=== PATIENT | female | born 1970 | race Hispanic/Latino ===

== ENCOUNTER 2017-10-23 23:31 | Emergency (ER) | payer BC ==
[~2017-10-23] VITALS: Ht 152.4 cm; Wt 78.0 kg
[~2017-10-23 23:31] MED LIST: ADIPEX-P37.5 MG; ARTHRITIS MEDICATION PO; DICYCLOMINE HCL20 MG PO; LISINOPRIL10 MG PO; LYRICA75 MG PO; NEXIUM40 MG PO; PHENOBARBITAL30 MG; TENORMIN100 MG PO; ULTRAM50 MG PO
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
[2017-10-24] MEDS ORDERED: KETOROLAC TROMETHAMINE 60 MG/2 ML VIAL IM ONE (01:30)
== END 2017-10-24 01:48 | disposition home or self-care (01) ==
LOC: ER 23:31
DX: S00.83XA Contusion of other part of head, initial encounter (principal); S40.012A Contusion of left shoulder, initial encounter; S40.022A Contusion of left upper arm, initial encounter; S70.02XA Contusion of left hip, initial encounter; S70.01XA Contusion of right hip, initial encounter; S16.1XXA Strain of muscle, fascia and tendon at neck level, initial encounter; V43.52XA Car driver injured in collision with other type car in traffic accident, initial encounter; Y92.488 Other paved roadways as the place of occurrence of the external cause
CPT/HCPCS: 70450; 71045; 72125; 73030; 73060; 73522; 99284; J1885

== ENCOUNTER → 2020-10-30 | Day surgery (SDC) | payer BC ==
[~2020-10-30] MED LIST changes: +CYCLOBENZAPRINE10 MG PO; +DEXAMETHASONE SOD PHOS 10 MG/1 ML VIAL ONE; +FENTANYL CITRATE/PF 100MCG/2 ML INJ ONE; +LIDOCAINE HCL 1% 30ML-PF VIAL ONE; +MIDAZOLAM HCL 2 MG/2 ML VIAL ONE; +MORPHINE PO; +ONDANSETRON HCL INJ 2MG/ML 2ML 2 MG/ML VIAL ONE; +POVIDONE IODINE 0.05% 0.05 % ML PO ONE; +PROPOFOL IV EMULSION 10 MG/ML 20 ML VIAL ONE; +VITAMIN D PO
[2020-10-30 08:30] VITALS: BP 110/62
== END | disposition home or self-care (01) ==
LOC: OR 11:15
PROVIDERS: ATTEND Physical Medicine & Rehabilitation Pain Medicine
DX: M54.12 Radiculopathy, cervical region (principal); M25.511 Pain in right shoulder; M46.1 Sacroiliitis, not elsewhere classified; M54.16 Radiculopathy, lumbar region; M47.816 Spondylosis without myelopathy or radiculopathy, lumbar region; G47.33 Obstructive sleep apnea (adult) (pediatric); I10 Essential (primary) hypertension; K58.9 Irritable bowel syndrome, unspecified; K21.9 Gastro-esophageal reflux disease without esophagitis; N20.0 Calculus of kidney; Z91.041 Radiographic dye allergy status; Z01.810 Encounter for preprocedural cardiovascular examination
CPT/HCPCS: 64479; 64480; 93005; J1100; J2001; J2250; J2405; J2704; J3010; 77003

== ENCOUNTER → 2020-11-06 | Day surgery (SDC) | payer BC ==
[~2020-11-06] MED LIST changes: -DEXAMETHASONE SOD PHOS 10 MG/1 ML VIAL ONE; +DIPHENHYDRAMINE HCL INJ 50 MG/ML VIAL ONE; +IOPAMIDOL 200 MG/ML 20 ML VIAL IT ONE; -ONDANSETRON HCL INJ 2MG/ML 2ML 2 MG/ML VIAL ONE; -POVIDONE IODINE 0.05% 0.05 % ML PO ONE; -PROPOFOL IV EMULSION 10 MG/ML 20 ML VIAL ONE
[2020-11-06 08:50] VITALS: BP 117/66
== END | disposition home or self-care (01) ==
LOC: OR 07:01
PROVIDERS: ATTEND Physical Medicine & Rehabilitation Pain Medicine
DX: M16.12 Unilateral primary osteoarthritis, left hip (principal); M47.816 Spondylosis without myelopathy or radiculopathy, lumbar region; M54.12 Radiculopathy, cervical region; M54.16 Radiculopathy, lumbar region; M46.1 Sacroiliitis, not elsewhere classified; M25.511 Pain in right shoulder; G47.33 Obstructive sleep apnea (adult) (pediatric); I10 Essential (primary) hypertension; Z91.041 Radiographic dye allergy status; K21.9 Gastro-esophageal reflux disease without esophagitis
CPT/HCPCS: 20610; 77002; J1200; J2001; J2250; J3010; Q9967

== ENCOUNTER → 2020-12-18 | Day surgery (SDC) | payer BC ==
[~2020-12-18] MED LIST changes: +DEXAMETHASONE SOD PHOS 10 MG/1 ML VIAL ONE; +DEXAMETHASONE SOD PHOS INJ 4 MG/ML VIAL ONE; -DIPHENHYDRAMINE HCL INJ 50 MG/ML VIAL ONE; -FENTANYL CITRATE/PF 100MCG/2 ML INJ ONE; +HYDROCODON-ACE1 EAC9 PO; -IOPAMIDOL 200 MG/ML 20 ML VIAL IT ONE; +LISINOPRIL5 MG PO; -MIDAZOLAM HCL 2 MG/2 ML VIAL ONE; +ONDANSETRON HCL INJ 2MG/ML 2ML 2 MG/ML VIAL ONE; +POVIDONE IODINE 0.05% 0.05 % ML PO ONE; +PROPOFOL IV EMULSION 10 MG/ML 20 ML VIAL ONE
[2020-12-18 08:48] VITALS: BP 111/70
== END | disposition home or self-care (01) ==
LOC: OR 05:52
PROVIDERS: ATTEND Physical Medicine & Rehabilitation Pain Medicine
DX: M54.16 Radiculopathy, lumbar region (principal); K21.9 Gastro-esophageal reflux disease without esophagitis; K58.9 Irritable bowel syndrome, unspecified; G47.33 Obstructive sleep apnea (adult) (pediatric); I10 Essential (primary) hypertension; M54.12 Radiculopathy, cervical region; M25.511 Pain in right shoulder; Z91.041 Radiographic dye allergy status
CPT/HCPCS: 64483; 64484; J1100 ×2; J2001; J2405; J2704; 77003

== ENCOUNTER → 2021-03-05 | Day surgery (SDC) | payer BC ==
[~2021-03-05] MED LIST changes: -DEXAMETHASONE SOD PHOS INJ 4 MG/ML VIAL ONE; +FENTANYL CITRATE/PF 100MCG/2 ML INJ ONE; +LOSARTAN POTASS25 MG PO; +MIDAZOLAM HCL 2 MG/2 ML VIAL ONE; -ONDANSETRON HCL INJ 2MG/ML 2ML 2 MG/ML VIAL ONE
[2021-03-05 08:30] VITALS: BP 110/77
== END | disposition home or self-care (01) ==
LOC: OR 07:09
PROVIDERS: ATTEND Physical Medicine & Rehabilitation Pain Medicine
DX: M54.16 Radiculopathy, lumbar region (principal); M46.1 Sacroiliitis, not elsewhere classified; M24.9 Joint derangement, unspecified; M54.12 Radiculopathy, cervical region; I10 Essential (primary) hypertension; Z91.041 Radiographic dye allergy status; Z01.810 Encounter for preprocedural cardiovascular examination; Z01.812 Encounter for preprocedural laboratory examination; Z20.822 Contact with and (suspected) exposure to COVID-19
CPT/HCPCS: 64483; 77003; 93005; J1100; J2001; J2250; J2704; J3010; U0002 ×2

== ENCOUNTER → 2021-03-19 | Day surgery (SDC) | payer BC ==
[~2021-03-19] MED LIST changes: +BUPIVACAINE 0.25% 30ML SDV ONE; -DEXAMETHASONE SOD PHOS 10 MG/1 ML VIAL ONE; +LIDOCAINE HCL 2% LOCAL INJ 5 ML SDV VIAL INJ ONE; +TRIAMCINOLONE ACET 40 MG/ML VIAL ONE
[2021-03-19 07:12] VITALS: BP 113/71
== END | disposition home or self-care (01) ==
LOC: OR 06:50
PROVIDERS: ATTEND Physical Medicine & Rehabilitation Pain Medicine
DX: M46.1 Sacroiliitis, not elsewhere classified (principal); G57.02 Lesion of sciatic nerve, left lower limb; M62.838 Other muscle spasm; M25.552 Pain in left hip; M25.551 Pain in right hip; M24.9 Joint derangement, unspecified; M25.511 Pain in right shoulder; M47.816 Spondylosis without myelopathy or radiculopathy, lumbar region; G47.33 Obstructive sleep apnea (adult) (pediatric); I10 Essential (primary) hypertension; K21.9 Gastro-esophageal reflux disease without esophagitis; K58.9 Irritable bowel syndrome, unspecified; N20.0 Calculus of kidney; Z91.041 Radiographic dye allergy status; Z01.812 Encounter for preprocedural laboratory examination; Z20.822 Contact with and (suspected) exposure to COVID-19
CPT/HCPCS: 20552; G0260; 77002; J2001; J2250; J3010; J3301; U0002

== ENCOUNTER → 2021-04-30 | Day surgery (SDC) | payer BC ==
[~2021-04-30] MED LIST changes: -BUPIVACAINE 0.25% 30ML SDV ONE; -FENTANYL CITRATE/PF 100MCG/2 ML INJ ONE; +ONDANSETRON HCL INJ 2MG/ML 2ML 2 MG/ML VIAL ONE
[2021-04-30 09:45] VITALS: BP 109/58
== END | disposition home or self-care (01) ==
LOC: OR 14:58
PROVIDERS: ATTEND Physical Medicine & Rehabilitation Pain Medicine
DX: M47.896 Other spondylosis, lumbar region (principal); M46.1 Sacroiliitis, not elsewhere classified; M54.12 Radiculopathy, cervical region; M54.16 Radiculopathy, lumbar region; M24.9 Joint derangement, unspecified; M25.511 Pain in right shoulder; I10 Essential (primary) hypertension; Z91.041 Radiographic dye allergy status; Z01.812 Encounter for preprocedural laboratory examination; Z20.822 Contact with and (suspected) exposure to COVID-19; Z79.899 Other long term (current) drug therapy
CPT/HCPCS: 64493; 64494; 64495; J2001 ×2; J2250; J2405; J2704; J3301; U0002; 77003

== ENCOUNTER 2021-11-11 21:28 | Emergency (ER) | payer OTHER ==
[~2021-11-11] VITALS: Ht 152.4 cm; Wt 78.0 kg
[~2021-11-11 21:28] MED LIST changes: -LIDOCAINE HCL 1% 30ML-PF VIAL ONE; -LIDOCAINE HCL 2% LOCAL INJ 5 ML SDV VIAL INJ ONE; -MIDAZOLAM HCL 2 MG/2 ML VIAL ONE; -ONDANSETRON HCL INJ 2MG/ML 2ML 2 MG/ML VIAL ONE; -POVIDONE IODINE 0.05% 0.05 % ML PO ONE; -PROPOFOL IV EMULSION 10 MG/ML 20 ML VIAL ONE; -TRIAMCINOLONE ACET 40 MG/ML VIAL ONE
[2021-11-11 22:42] LABS: BASOPHILS % 0.3 % (0.0-1.0); EOSINOPHILS # (AUTO) 0.1 (0.0-0.4); HEMATOCRIT 33.5 % (34.2-44.1); HEMOGLOBIN 9.8 g/dL (12.0-16.0); LYMPHOCYTES # (AUTO) 1.4 (1.0-3.2); LYMPHOCYTES % 16.5 % (18.0-39.1); MEAN CORPUSCULAR HEMOGLOBIN 27.1 pg (28-32); MEAN CORPUSCULAR HGB CONC 29.3 g/dL (31-35); MEAN CORPUSCULAR VOLUME 92.8 fL (81-99); MONOCYTES # (AUTO) 0.9 (0.2-0.8); NEUTROPHILS # (AUTO) 6.3 (2.1-6.9); PLATELET COUNT 285 x10e3/uL (140-360); RED BLOOD COUNT 3.61 x10e6/uL (3.6-5.1)
[2021-11-11 22:44] LABS: CLARITY,URINE SL CLOUDY (CLEAR); COLOR,URINE YELLOW (YELLOW); KETONES,URINE NEGATIVE (NEGATIVE); LEUKOCYTE ESTERASE ,URINE NEGATIVE (NEGATIVE); NITRITE,URINE POSITIVE (NEGATIVE); PROTEIN,URINE DIPSTICK NEGATIVE (NEGATIVE); URINE UROBILINOGEN 0.2 mg/dL (0.2 - 1)
[2021-11-11 22:47] LABS: BACTERIA,URINE MANY /HPF; EPITHELIAL CELLS,URINE MODERATE /LPF; RBC,URINE 0-5 /HPF (0-5); WBC,URINE (MAN) 0-5 /HPF (0-5)
[2021-11-11 23:01] LABS: ALBUMIN 3.1 g/dL (3.5-5.0); ANION GAP 13.7 mmol/L (8-16); CALCIUM 8.2 mg/dL (8.4-10.2); CREATININE, SERUM 0.78 mg/dL (0.57-1.11); POTASSIUM 4.7 mmol/L (3.5-5.1)
== END 2021-11-12 00:23 | disposition home or self-care (01) ==
LOC: ER 22:25
DX: M54.50 Low back pain, unspecified (principal); G89.29 Other chronic pain; R10.32 Left lower quadrant pain; R11.0 Nausea; I10 Essential (primary) hypertension; E03.9 Hypothyroidism, unspecified; K21.9 Gastro-esophageal reflux disease without esophagitis
CPT/HCPCS: 36415; 70450; 72125; 74176; 80053; 81001; 85025; 87086; 87186; 99284

== ENCOUNTER 2022-05-07 21:45 | Inpatient (IN) | payer OTHER ==
[~2022-05-07] VITALS: Ht 152.4 cm; Wt 43.1 kg
[2022-05-07 23:21] LABS: BASOPHILS % 0.2 % (0.0-1.0); EOSINOPHILS % 0.2 % (0.0-6.0); HEMATOCRIT 30.5 % (34.2-44.1); HEMOGLOBIN 9.1 g/dL (12.0-16.0); LYMPHOCYTES # (AUTO) 1.2 (1.0-3.2); LYMPHOCYTES % 25.6 % (18.0-39.1); MEAN CORPUSCULAR HEMOGLOBIN 31.6 pg (28-32); MEAN CORPUSCULAR HGB CONC 29.8 g/dL (31-35); MEAN CORPUSCULAR VOLUME 105.9 fL (81-99); MONOCYTES # (AUTO) 0.3 (0.2-0.8); MONOCYTES % 5.9 % (4.4-11.3); NEUTROPHILS # (AUTO) 3.2 (2.1-6.9); NEUTROPHILS % 67.5 % (38.7-80.0); PLATELET COUNT 276 x10e3/uL (140-360); RED BLOOD COUNT 2.88 x10e6/uL (3.6-5.1)
[2022-05-07 23:31] LABS: INR 2.27; PROTHROMBIN TIME 25.2 seconds (11.9-14.5)
[2022-05-07 23:39] LABS: CREATINE KINASE 86 IU/L (29-168)
[2022-05-07 23:40] LABS: ALBUMIN 1.4 g/dL (3.5-5.0); ALBUMIN/GLOBULIN RATIO 0.5 (0.8-2.0); CREATININE, SERUM 0.84 mg/dL (0.57-1.11)
[2022-05-08] VITALS (20 sets, daily range): BP systolic 100–125; BP diastolic 61–102
[2022-05-08] MEDS ORDERED: Morphine 4mg INJECTION 4 MG/ML INJ IV PRN (00:45)
[2022-05-08] MEDS ORDERED: Morphine 4mg INJECTION 4 MG/ML INJ IV ONE (00:45)
[2022-05-08] MEDS: SODIUM CHLORIDE 0.9% 1000ML 1,000 ML IV SCH ×2 (01:23→09:45)
[2022-05-08] MEDS ORDERED: ASPIRIN ENTERI325 MG PO (05:25)
[2022-05-08] MEDS ORDERED: MELOXICAM7.5 MG PO (05:54)
[2022-05-08] MEDS ORDERED: LEVOCETIRIZINE D5 MG PO (05:54)
[2022-05-08] MEDS ORDERED: XARELTO20 MG PO (05:54)
[2022-05-08] MEDS ORDERED: MONTELUKAST SOD10 MG PO (05:54)
[2022-05-08] MEDS ORDERED: ONDANSETRON ODT4 MG PO (05:54)
[2022-05-08] MEDS ORDERED: TRIAMTERENE-HCTZ1 EA PO (05:54)
[2022-05-08] MEDS ORDERED: NEXIUM40 MG PO (05:54)
[2022-05-08] MEDS ORDERED: BUTALB-ACETAMI1 EACH PO (05:54)
[2022-05-08] MEDS ORDERED: NEURONTIN300 MG PO (05:54)
[2022-05-08] MEDS ORDERED: LOMOTIL TABLET1 EACH PO (05:54)
[2022-05-08] MEDS ORDERED: METHOCARBAMOL750 MG PO (05:54)
[2022-05-08 06:52] LABS: BASOPHILS % 0.2 % (0.0-1.0); EOSINOPHILS % 0.2 % (0.0-6.0); HEMATOCRIT 27.6 % (34.2-44.1); HEMOGLOBIN 8.3 g/dL (12.0-16.0); LYMPHOCYTES # (AUTO) 1.5 (1.0-3.2); LYMPHOCYTES % 31.1 % (18.0-39.1); MEAN CORPUSCULAR HEMOGLOBIN 31.6 pg (28-32); MEAN CORPUSCULAR HGB CONC 30.1 g/dL (31-35); MEAN CORPUSCULAR VOLUME 104.9 fL (81-99); MONOCYTES # (AUTO) 0.3 (0.2-0.8); NEUTROPHILS % 61.7 % (38.7-80.0); PLATELET COUNT 240 x10e3/uL (140-360); RED BLOOD COUNT 2.63 x10e6/uL (3.6-5.1); RED CELL DISTRIBUTION WIDTH 15.2 % (11.7-14.4)
[2022-05-08 07:20] LABS: CREATINE KINASE MB 1.3 ng/mL (0-5.0)
[2022-05-08] MEDS ORDERED: POTASSIUM CHLORIDE 20 MEQ TAB CR PO PRN (13:30)
[2022-05-08] MEDS ORDERED: DEXTROSE 50% SYRINGE 50 ML IV PRN (13:30)
[2022-05-08] MEDS ORDERED: HYDRALAZINE HCL 20 MG/ML VIAL IV PRN (13:30)
[2022-05-08] MEDS ORDERED: LIDOCAINE 4% PATCH TP PRN (13:30)
[2022-05-08] MEDS ORDERED: MELATONIN 5 MG TABLET PO PRN (13:30)
[2022-05-08] MEDS ORDERED: BENZONATATE 100 MG CAP PO PRN (13:30)
[2022-05-08] MEDS ORDERED: SIMETHICONE 80 MG CHEW PO PRN (13:30)
[2022-05-08] MEDS ORDERED: DIPHENHYDRAMINE HCL 25 MG CAP PO PRN (13:30)
[2022-05-08] MEDS ORDERED: DOCUSATE SODIUM 100 MG CAP PO PRN (13:30)
[2022-05-08] MEDS ORDERED: OXYCODONE/ACETAMINOPHEN 5-325 1 EACH TABLET PO PRN (14:30)
[2022-05-08] MEDS: OXYCODONE/ACETAMINOPHEN 5-325 1 EACH TABLET PO PRN (15:36)
[2022-05-08 15:56] LABS: INR 1.5; PARTIAL THROMBOPLASTIN TIME 17.7 seconds (23.8-35.5); PROTHROMBIN TIME 18.3 seconds (11.9-14.5)
[2022-05-08] MEDS ORDERED: HEPARIN 25,000 UNIT 25,000 UNIT in DEXTROSE 5% 250ML 250 ML IV SCH (18:30)
[2022-05-08 19:01] LABS: HEMATOCRIT 32.8 % (34.2-44.1); HEMOGLOBIN 10.3 g/dL (12.0-16.0)
[2022-05-09] VITALS (31 sets, daily range): BP systolic 96–131; BP diastolic 71–103
[2022-05-09 00:50] LABS: HEMATOCRIT 26.8 % (34.2-44.1); HEMOGLOBIN 8.7 g/dL (12.0-16.0)
[2022-05-09 04:10] LABS: IRON 65 ug/dL (50-170); TRANSFERRIN < 70 mg/dL (180-382)
[2022-05-09 05:47] LABS: BASOPHILS % 0.7 % (0.0-1.0); HEMATOCRIT 27.6 % (34.2-44.1); HEMOGLOBIN 8.5 g/dL (12.0-16.0); LYMPHOCYTES % 22.5 % (18.0-39.1); MEAN CORPUSCULAR HGB CONC 30.8 g/dL (31-35); MEAN CORPUSCULAR VOLUME 103.8 fL (81-99); MONOCYTES # (AUTO) 0.3 (0.2-0.8); MONOCYTES % 5.7 % (4.4-11.3); NEUTROPHILS # (AUTO) 3.2 (2.1-6.9); NEUTROPHILS % 70.7 % (38.7-80.0); PLATELET COUNT 239 x10e3/uL (140-360); RED BLOOD COUNT 2.66 x10e6/uL (3.6-5.1); RED CELL DISTRIBUTION WIDTH 15.4 % (11.7-14.4)
[2022-05-09 06:16] LABS: ALBUMIN 1.3 g/dL (3.5-5.0); ALBUMIN/GLOBULIN RATIO 0.5 (0.8-2.0); ANION GAP 11.4 mmol/L (8-16); CREATININE, SERUM 0.74 mg/dL (0.57-1.11); POTASSIUM 3.4 mmol/L (3.5-5.1)
[2022-05-09 06:17] LABS: CALCIUM 6.5 mg/dL (8.4-10.2)
[2022-05-09] MEDS ORDERED: POTASSIUM CHLORIDE 20 MEQ TAB CR PO STA (06:29)
[2022-05-09] MEDS ORDERED: CALCIUM GLUC 1 G/50 ML NACL 100 ML IV ONE (06:30)
[2022-05-09] MEDS: PANTOPRAZOLE SOD 40 MG TABEC PO SCH (09:16)
[2022-05-09] MEDS: MONTELUKAST SODIUM 10 MG TAB PO SCH (09:16)
[2022-05-09] MEDS: OXYCODONE/ACETAMINOPHEN 5-325 1 EACH TABLET PO PRN (12:15)
[2022-05-09 12:30] LABS: HEMATOCRIT 28.3 % (34.2-44.1); HEMOGLOBIN 9.2 g/dL (12.0-16.0)
[2022-05-09 13:24] LABS: INR 1.21; PROTHROMBIN TIME 15.5 seconds (11.9-14.5)
[2022-05-09] MEDS ORDERED: SODIUM FERRIC GLUCONATE COMPLX 125 MG in SODIUM CHLORIDE 0.9% 100 ML IV ONE (14:00)
[2022-05-09] MEDS: ONDANSETRON HCL INJ 2MG/ML 2ML 2 MG/ML VIAL IV PRN (15:55)
[2022-05-09] MEDS: ACETAMINOPHEN 325 MG TAB PO PRN ×2 (15:58→22:06)
[2022-05-09] MEDS: FUROSEMIDE INJ 10 MG/ML 2 ML VIAL IV SCH ×2 (18:11→22:05)
[2022-05-09 19:44] LABS: HEMATOCRIT 30.5 % (34.2-44.1); HEMOGLOBIN 9.3 g/dL (12.0-16.0)
[2022-05-10] VITALS (26 sets, daily range): BP systolic 93–126; BP diastolic 74–102
[2022-05-10 01:06] LABS: BASOPHILS % 0.5 % (0.0-1.0); EOSINOPHILS % 0.5 % (0.0-6.0); HEMOGLOBIN 8.2 g/dL (12.0-16.0); LYMPHOCYTES # (AUTO) 1.1 (1.0-3.2); LYMPHOCYTES % 18.7 % (18.0-39.1); MEAN CORPUSCULAR HGB CONC 30.4 g/dL (31-35); MEAN CORPUSCULAR VOLUME 105.5 fL (81-99); MONOCYTES # (AUTO) 0.2 (0.2-0.8); NEUTROPHILS # (AUTO) 4.3 (2.1-6.9); NEUTROPHILS % 74.9 % (38.7-80.0); PLATELET COUNT 213 x10e3/uL (140-360); RED BLOOD COUNT 2.56 x10e6/uL (3.6-5.1); RED CELL DISTRIBUTION WIDTH 15.5 % (11.7-14.4)
[2022-05-10] MEDS ORDERED: HEPARIN 25,000 UNIT 25,000 UNIT in DEXTROSE 5% 250ML 250 ML IV SCH ×2 (02:00→02:15)
[2022-05-10] MEDS: OXYCODONE/ACETAMINOPHEN 5-325 1 EACH TABLET PO PRN ×2 (04:01→11:54)
[2022-05-10 06:04] LABS: BASOPHILS % 0.4 % (0.0-1.0); EOSINOPHILS % 0.2 % (0.0-6.0); HEMATOCRIT 25.7 % (34.2-44.1); HEMOGLOBIN 8.2 g/dL (12.0-16.0); LYMPHOCYTES % 19.4 % (18.0-39.1); MEAN CORPUSCULAR HEMOGLOBIN 31.7 pg (28-32); MEAN CORPUSCULAR HGB CONC 31.9 g/dL (31-35); MEAN CORPUSCULAR VOLUME 99.2 fL (81-99); MONOCYTES # (AUTO) 0.3 (0.2-0.8); NEUTROPHILS # (AUTO) 3.9 (2.1-6.9); PLATELET COUNT 220 x10e3/uL (140-360); RED BLOOD COUNT 2.59 x10e6/uL (3.6-5.1); RED CELL DISTRIBUTION WIDTH 15.6 % (11.7-14.4)
[2022-05-10] MEDS: FUROSEMIDE INJ 10 MG/ML 2 ML VIAL IV SCH (06:29)
[2022-05-10 07:19] LABS: ALBUMIN 1.2 g/dL (3.5-5.0); ALBUMIN/GLOBULIN RATIO 0.5 (0.8-2.0); ANION GAP 14.2 mmol/L (8-16); CREATININE, SERUM 0.78 mg/dL (0.57-1.11); POTASSIUM 3.2 mmol/L (3.5-5.1)
[2022-05-10 07:22] LABS: CALCIUM 6.5 mg/dL (8.4-10.2)
[2022-05-10] MEDS: MONTELUKAST SODIUM 10 MG TAB PO SCH (08:14)
[2022-05-10] MEDS: PANTOPRAZOLE SOD 40 MG TABEC PO SCH (08:14)
[2022-05-10] MEDS ORDERED: POTASSIUM CHLORIDE 20 MEQ TAB CR PO ONE (09:30)
[2022-05-10] MEDS: ONDANSETRON HCL INJ 2MG/ML 2ML 2 MG/ML VIAL IV PRN ×2 (09:36→18:39)
[2022-05-10] MEDS ORDERED: HEPARIN 25,000 UNIT 500 UNIT in DEXTROSE 5% 250ML 250 ML IV SCH (10:00)
[2022-05-10] MEDS: HEPARIN 25,000 UNIT 500 UNIT in DEXTROSE 5% 250ML 250 ML IV SCH (13:00)
[2022-05-10 16:57] LABS: HEMATOCRIT 26.9 % (34.2-44.1); HEMOGLOBIN 8.3 g/dL (12.0-16.0)
[2022-05-10] MEDS ORDERED: ONDANSETRON HCL INJ 2MG/ML 2ML 2 MG/ML VIAL IV ONE (19:59)
[2022-05-10] MEDS: PROMETHAZINE 12.5MG/ NACL 0.9% 12.5 MG/50 ML BAG IV PRN (20:43)
[2022-05-10] MEDS ORDERED: PREDNISONE 20 MG TAB PO ONE (21:00)
[2022-05-11] VITALS (23 sets, daily range): BP systolic 98–129; BP diastolic 68–101
[2022-05-11 00:20] LABS: ANION GAP 13.8 mmol/L (8-16); CREATININE, SERUM 0.77 mg/dL (0.57-1.11); POTASSIUM 3.8 mmol/L (3.5-5.1)
[2022-05-11 00:23] LABS: CALCIUM 6.2 mg/dL (8.4-10.2)
[2022-05-11 00:47] LABS: HEMATOCRIT 23.9 % (34.2-44.1); HEMOGLOBIN 7.4 g/dL (12.0-16.0)
[2022-05-11] MEDS: OXYCODONE/ACETAMINOPHEN 5-325 1 EACH TABLET PO PRN ×3 (01:32→20:35)
[2022-05-11] MEDS ORDERED: PREDNISONE 20 MG TAB PO ONE ×3 (03:00→09:00)
[2022-05-11 06:52] LABS: BASOPHILS % 0.3 % (0.0-1.0); HEMATOCRIT 23.3 % (34.2-44.1); LYMPHOCYTES # (AUTO) 0.7 (1.0-3.2); LYMPHOCYTES % 21.8 % (18.0-39.1); MEAN CORPUSCULAR HEMOGLOBIN 31.3 pg (28-32); MONOCYTES # (AUTO) 0.1 (0.2-0.8); MONOCYTES % 1.5 % (4.4-11.3); NEUTROPHILS # (AUTO) 2.5 (2.1-6.9); NEUTROPHILS % 75.8 % (38.7-80.0); PLATELET COUNT 205 x10e3/uL (140-360); RED BLOOD COUNT 2.24 x10e6/uL (3.6-5.1); RED CELL DISTRIBUTION WIDTH 15.8 % (11.7-14.4)
[2022-05-11] MEDS: MONTELUKAST SODIUM 10 MG TAB PO SCH (08:05)
[2022-05-11] MEDS ORDERED: DIPHENHYDRAMINE HCL INJ 50 MG/ML VIAL IV ONE (09:00)
[2022-05-11] MEDS: HEPARIN 25,000 UNIT 500 UNIT in DEXTROSE 5% 250ML 250 ML IV SCH (10:15)
[2022-05-11] MEDS: PROMETHAZINE 12.5MG/ NACL 0.9% 12.5 MG/50 ML BAG IV PRN ×2 (12:42→21:15)
[2022-05-11 13:29] LABS: HEMATOCRIT 25.6 % (34.2-44.1); HEMOGLOBIN 7.8 g/dL (12.0-16.0)
[2022-05-11 14:36] LABS: MEAN CORPUSCULAR HEMOGLOBIN 31.6 pg (28-32); MEAN CORPUSCULAR VOLUME 105.3 fL (81-99); PLATELET COUNT 248 x10e3/uL (140-360); RED BLOOD COUNT 2.44 x10e6/uL (3.6-5.1); RED CELL DISTRIBUTION WIDTH 15.6 % (11.7-14.4)
[2022-05-11 15:37] LABS: EOSINOPHILS % (MANUAL) 1 % (0-7); LYMPHOCYTES % (MANUAL) 5 % (19-48); MONOCYTES % (MANUAL) 1 % (3.4-9.0); NEUTROPHILS % (MANUAL) 93 % (40-74); PLATELET ESTIMATE ADEQUATE; PLATELET MORPHOLOGY COMMENT NORMAL; RBC MORPHOLOGY COMMENT NORMAL
[2022-05-11 20:24] LABS: HEMATOCRIT 24.2 % (34.2-44.1); HEMOGLOBIN 7.5 g/dL (12.0-16.0)
[2022-05-12] VITALS (12 sets, daily range): BP systolic 99–126; BP diastolic 71–100
[2022-05-12] MEDS ORDERED: MAGNESIUM HYDROXIDE 30 ML UDC PO ONE (04:15)
[2022-05-12] MEDS: OXYCODONE/ACETAMINOPHEN 5-325 1 EACH TABLET PO PRN (05:13)
[2022-05-12 06:50] LABS: HEMATOCRIT 23.5 % (34.2-44.1); HEMOGLOBIN 7.4 g/dL (12.0-16.0); LYMPHOCYTES # (AUTO) 1.9 (1.0-3.2); LYMPHOCYTES % 24.7 % (18.0-39.1); MEAN CORPUSCULAR HEMOGLOBIN 32.5 pg (28-32); MEAN CORPUSCULAR HGB CONC 31.5 g/dL (31-35); MEAN CORPUSCULAR VOLUME 103.1 fL (81-99); MONOCYTES # (AUTO) 0.4 (0.2-0.8); MONOCYTES % 4.7 % (4.4-11.3); NEUTROPHILS # (AUTO) 5.5 (2.1-6.9); NEUTROPHILS % 69.8 % (38.7-80.0); PLATELET COUNT 265 x10e3/uL (140-360); RED BLOOD COUNT 2.28 x10e6/uL (3.6-5.1); RED CELL DISTRIBUTION WIDTH 15.6 % (11.7-14.4)
[2022-05-12] MEDS ORDERED: CALCIUM GLUC 1 G/50 ML NACL 100 ML IV ONE ×2 (08:45→11:00)
[2022-05-12] MEDS: MONTELUKAST SODIUM 10 MG TAB PO SCH (09:16)
[2022-05-12] MEDS: OYST-CAL-D 500MG TABLET PO SCH ×3 (09:16→21:55)
[2022-05-12] MEDS: HYDROCODONE/APAP 10MG-325MG TAB PO PRN ×2 (09:20→23:16)
[2022-05-12] MEDS: HEPARIN 25,000 UNIT 500 UNIT in DEXTROSE 5% 250ML 250 ML IV SCH (10:15)
[2022-05-12] MEDS: Morphine 2mg Syringe 2 MG/ML SYR IV PRN (11:22)
[2022-05-12] MEDS ORDERED: CALCIUM GLUC 1 G/50 ML NACL 50 ML IV ONE (12:00)
[2022-05-12] MEDS: PROMETHAZINE 12.5MG/ NACL 0.9% 12.5 MG/50 ML BAG IV PRN (15:25)
[2022-05-12] MEDS ORDERED: SODIUM CHLORIDE 0.9% 250ML 250 ML ONE (15:36)
[2022-05-12 15:37] LABS: IRON 67 ug/dL (50-170); TRANSFERRIN < 70 mg/dL (180-382)
[2022-05-12] MEDS: ONDANSETRON HCL INJ 2MG/ML 2ML 2 MG/ML VIAL IV PRN (23:16)
[2022-05-13] VITALS (8 sets, daily range): BP systolic 92–112; BP diastolic 69–84
[2022-05-13] MEDS ORDERED: MAGNESIUM HYDROXIDE 30 ML UDC PO ONE (03:00)
[2022-05-13] MEDS ORDERED: PROMETHAZINE 12.5MG/ NACL 0.9% 12.5 MG/50 ML BAG IV PRN (03:00)
[2022-05-13] MEDS: HYDROCODONE/APAP 10MG-325MG TAB PO PRN ×2 (03:30→08:18)
[2022-05-13 05:31] LABS: BASOPHILS % 0.2 % (0.0-1.0); EOSINOPHILS % 0.5 % (0.0-6.0); HEMATOCRIT 27.3 % (34.2-44.1); HEMOGLOBIN 8.7 g/dL (12.0-16.0); LYMPHOCYTES # (AUTO) 1.3 (1.0-3.2); LYMPHOCYTES % 23.4 % (18.0-39.1); MEAN CORPUSCULAR HEMOGLOBIN 32.5 pg (28-32); MEAN CORPUSCULAR HGB CONC 31.9 g/dL (31-35); MEAN CORPUSCULAR VOLUME 101.9 fL (81-99); MONOCYTES # (AUTO) 0.3 (0.2-0.8); MONOCYTES % 4.5 % (4.4-11.3); NEUTROPHILS % 70.7 % (38.7-80.0); PLATELET COUNT 262 x10e3/uL (140-360); RED BLOOD COUNT 2.68 x10e6/uL (3.6-5.1); RED CELL DISTRIBUTION WIDTH 16.1 % (11.7-14.4)
[2022-05-13 06:16] LABS: ANION GAP 18.3 mmol/L (8-16); CREATININE, SERUM 0.78 mg/dL (0.57-1.11); POTASSIUM 4.3 mmol/L (3.5-5.1)
[2022-05-13 06:19] LABS: CALCIUM 6.8 mg/dL (8.4-10.2)
[2022-05-13] MEDS: OYST-CAL-D 500MG TABLET PO SCH ×3 (08:17→20:45)
[2022-05-13] MEDS: MONTELUKAST SODIUM 10 MG TAB PO SCH (08:17)
[2022-05-13] MEDS: HEPARIN 25,000 UNIT 500 UNIT in DEXTROSE 5% 250ML 250 ML IV SCH ×2 (10:15→21:11)
[2022-05-13] MEDS: SODIUM FERRIC GLUCONATE COMPLX 125 MG in SODIUM CHLORIDE 0.9% 100 ML IV SCH (12:35)
[2022-05-13 17:22] LABS: BASOPHILS % 0.1 % (0.0-1.0); HEMATOCRIT 24.2 % (34.2-44.1); HEMOGLOBIN 7.4 g/dL (12.0-16.0); LYMPHOCYTES # (AUTO) 1.8 (1.0-3.2); LYMPHOCYTES % 18.5 % (18.0-39.1); MEAN CORPUSCULAR HEMOGLOBIN 31.8 pg (28-32); MEAN CORPUSCULAR HGB CONC 30.6 g/dL (31-35); MEAN CORPUSCULAR VOLUME 103.9 fL (81-99); MONOCYTES # (AUTO) 0.4 (0.2-0.8); MONOCYTES % 4.2 % (4.4-11.3); NEUTROPHILS # (AUTO) 7.6 (2.1-6.9); NEUTROPHILS % 76.6 % (38.7-80.0); PLATELET COUNT 275 x10e3/uL (140-360); RED BLOOD COUNT 2.33 x10e6/uL (3.6-5.1)
[2022-05-13] MEDS: ACETAMINOPHEN 325 MG TAB PO PRN (21:46)
[2022-05-14] VITALS (8 sets, daily range): BP systolic 97–110; BP diastolic 72–85
[2022-05-14] MEDS ORDERED: MAGNESIUM HYDROXIDE 30 ML UDC PO ONE (00:45)
[2022-05-14] MEDS: HYDROCODONE/APAP 10MG-325MG TAB PO PRN ×3 (02:16→22:49)
[2022-05-14] MEDS: Morphine 2mg Syringe 2 MG/ML SYR IV PRN (04:11)
[2022-05-14] MEDS: HEPARIN 25,000 UNIT 500 UNIT in DEXTROSE 5% 250ML 250 ML IV SCH (05:05)
[2022-05-14 06:59] LABS: EOSINOPHILS % 0.2 % (0.0-6.0); HEMATOCRIT 23.3 % (34.2-44.1); LYMPHOCYTES # (AUTO) 1.5 (1.0-3.2); MEAN CORPUSCULAR HEMOGLOBIN 31.7 pg (28-32); MEAN CORPUSCULAR VOLUME 105.4 fL (81-99); MONOCYTES # (AUTO) 0.3 (0.2-0.8); NEUTROPHILS # (AUTO) 4.8 (2.1-6.9); NEUTROPHILS % 73.2 % (38.7-80.0); PLATELET COUNT 293 x10e3/uL (140-360); RED BLOOD COUNT 2.21 x10e6/uL (3.6-5.1); RED CELL DISTRIBUTION WIDTH 16.2 % (11.7-14.4)
[2022-05-14] MEDS: MONTELUKAST SODIUM 10 MG TAB PO SCH (09:14)
[2022-05-14] MEDS: OYST-CAL-D 500MG TABLET PO SCH ×3 (09:14→22:48)
[2022-05-14] MEDS: PROMETHAZINE 12.5MG/ NACL 0.9% 12.5 MG/50 ML BAG IV SCH ×3 (09:23→17:27)
[2022-05-14] MEDS ORDERED: SODIUM CHLORIDE 0.9% 250ML 250 ML IV ONE (10:30)
[2022-05-14] MEDS ORDERED: FUROSEMIDE INJ 10 MG/ML 2 ML VIAL IV PRN (10:30)
[2022-05-14] MEDS: MEGESTROL ACETATE 40 MG TAB PO SCH ×2 (11:42→16:36)
[2022-05-14] MEDS: SODIUM FERRIC GLUCONATE COMPLX 125 MG in SODIUM CHLORIDE 0.9% 100 ML IV SCH (11:43)
[2022-05-14] MEDS ORDERED: DEXAMETHASONE SOD PHOS 10 MG/1 ML VIAL IV ONE ×2 (13:45→17:00)
[2022-05-14 13:59] LABS: CLARITY,URINE TURBID (CLEAR); COLOR,URINE YELLOW (YELLOW)
[2022-05-14 14:00] LABS: BACTERIA,URINE MANY /HPF; KETONES,URINE NEGATIVE (NEGATIVE); LEUKOCYTE ESTERASE ,URINE SMALL (NEGATIVE); NITRITE,URINE NEGATIVE (NEGATIVE); PROTEIN,URINE DIPSTICK 1+ (NEGATIVE); RBC,URINE 21-50 /HPF (0-5); URINE UROBILINOGEN 0.2 mg/dL (0.2 - 1)
[2022-05-14] MEDS ORDERED: SODIUM CHLORIDE 0.9% 250ML 250 ML ONE (14:00)
[2022-05-14 14:01] LABS: EPITHELIAL CELLS,URINE RARE /LPF
[2022-05-14] MEDS: RIVAROXABAN 20 MG TABLET PO SCH (16:36)
[2022-05-14] MEDS ORDERED: POLYETHYLENE GLYCOL 3350 17 GM PACK PO PRN (16:45)
[2022-05-14] MEDS ORDERED: RIVAROXABAN 20 MG TABLET PO SCH (17:00)
[2022-05-14] MEDS: MIRTAZAPINE 15 MG TAB PO SCH ×2 (22:48→22:49)
[2022-05-15] VITALS: BP 122/76
[2022-05-15] MEDS ORDERED: BISACODYL 10 MG SUPP PR ONE (02:30)
[2022-05-15] MEDS: HYDROCODONE/APAP 10MG-325MG TAB PO PRN (04:11)
[2022-05-15 04:16] VITALS: BP 116/87
[2022-05-15] MEDS: ALBUMIN 25% 12.5GM 0.25 GM/ML BTL IV SCH ×4 (05:49→23:34)
[2022-05-15] MEDS: PROMETHAZINE 12.5MG/ NACL 0.9% 12.5 MG/50 ML BAG IV SCH ×3 (07:45→17:01)
[2022-05-15 08:33] VITALS: BP 101/79
[2022-05-15 11:40] VITALS: BP 126/83
[2022-05-15] MEDS: MEGESTROL ACETATE 40 MG TAB PO SCH ×2 (13:24→17:37)
[2022-05-15] MEDS: MONTELUKAST SODIUM 10 MG TAB PO SCH (13:24)
[2022-05-15] MEDS: OYST-CAL-D 500MG TABLET PO SCH ×3 (13:24→20:46)
[2022-05-15] MEDS: SODIUM FERRIC GLUCONATE COMPLX 125 MG in SODIUM CHLORIDE 0.9% 100 ML IV SCH (13:24)
[2022-05-15] MEDS ORDERED: DEXAMETHASONE SOD PHOS 10 MG/1 ML VIAL IV NR (14:00)
[2022-05-15 15:36] VITALS: BP 111/78
[2022-05-15] MEDS ORDERED: APIXABAN 5 MG TABLET PO SCH (17:00)
[2022-05-15] MEDS: RIVAROXABAN 20 MG TABLET PO SCH (17:34)
[2022-05-15] MEDS ORDERED: ALTEPLASE RECOMBINANT 2 MG/2 ML VIAL IV PRN (19:45)
[2022-05-15 20:04] LABS: HEMATOCRIT 29.4 % (34.2-44.1); HEMOGLOBIN 8.9 g/dL (12.0-16.0); LYMPHOCYTES # (AUTO) 0.8 (1.0-3.2); MEAN CORPUSCULAR HEMOGLOBIN 31.3 pg (28-32); MEAN CORPUSCULAR HGB CONC 30.3 g/dL (31-35); MEAN CORPUSCULAR VOLUME 103.5 fL (81-99); MONOCYTES # (AUTO) 0.1 (0.2-0.8); MONOCYTES % 6.3 % (4.4-11.3); NEUTROPHILS # (AUTO) 1.2 (2.1-6.9); NEUTROPHILS % 56.2 % (38.7-80.0); PLATELET COUNT 129 x10e3/uL (140-360); RED BLOOD COUNT 2.84 x10e6/uL (3.6-5.1); RED CELL DISTRIBUTION WIDTH 16.8 % (11.7-14.4)
[2022-05-15 20:28] VITALS: BP 137/93
[2022-05-15] MEDS ORDERED: MIRTAZAPINE 15 MG TAB PO SCH (21:00)
[2022-05-15] MEDS: Morphine 2mg Syringe 2 MG/ML SYR IV PRN (21:00)
[2022-05-15] MEDS ORDERED: SODIUM CHLORIDE 0.9% 1000ML 250 ML IV ONE (23:00)
[2022-05-16] VITALS (31 sets, daily range): BP systolic 93–148; BP diastolic 61–121
[2022-05-16] MEDS ORDERED: SODIUM CHLORIDE 0.9% 1000ML 250 ML IV ONE (00:30)
[2022-05-16] MEDS ORDERED: METOPROLOL TARTRATE INJ 1 MG/ML VIAL IV PRN (00:30)
[2022-05-16] MEDS ORDERED: FUROSEMIDE INJ 10 MG/ML 4 ML VIAL IV ONE (04:15)
[2022-05-16] MEDS: ALBUMIN 25% 12.5GM 0.25 GM/ML BTL IV SCH (06:05)
[2022-05-16] MEDS: PROMETHAZINE 12.5MG/ NACL 0.9% 12.5 MG/50 ML BAG IV SCH (07:30)
[2022-05-16 07:56] LABS: BASOPHILS % 0.6 % (0.0-1.0); HEMATOCRIT 32.2 % (34.2-44.1); HEMOGLOBIN 9.4 g/dL (12.0-16.0); LYMPHOCYTES # (AUTO) 0.4 (1.0-3.2); MEAN CORPUSCULAR HEMOGLOBIN 31.8 pg (28-32); MEAN CORPUSCULAR HGB CONC 29.2 g/dL (31-35); MEAN CORPUSCULAR VOLUME 108.8 fL (81-99); MONOCYTES # (AUTO) 0.1 (0.2-0.8); MONOCYTES % 6.4 % (4.4-11.3); NEUTROPHILS # (AUTO) 1.2 (2.1-6.9); PLATELET COUNT 81 x10e3/uL (140-360); RED BLOOD COUNT 2.96 x10e6/uL (3.6-5.1)
[2022-05-16] MEDS: MONTELUKAST SODIUM 10 MG TAB PO SCH (08:35)
[2022-05-16] MEDS: OYST-CAL-D 500MG TABLET PO SCH ×3 (08:35→21:13)
[2022-05-16] MEDS: MEGESTROL ACETATE 40 MG TAB PO SCH ×2 (08:35→15:02)
[2022-05-16 09:26] LABS: CREATININE, SERUM 0.76 mg/dL (0.57-1.11)
[2022-05-16 09:33] LABS: CALCIUM 7.9 mg/dL (8.4-10.2)
[2022-05-16 10:52] LABS: BAND NEUTROPHILS % (MANUAL) 8 %; LYMPHOCYTES % (MANUAL) 43 % (19-48); MONOCYTES % (MANUAL) 9 % (3.4-9.0); NEUTROPHILS % (MANUAL) 40 % (40-74)
[2022-05-16 10:53] LABS: PLATELET ESTIMATE MODERATELY DECREASED; PLATELET MORPHOLOGY COMMENT NORMAL; RBC MORPHOLOGY COMMENT NORMAL
[2022-05-16] MEDS: KCL 20 MEQ PACKET/ ORAL SOLN NG SCH ×2 (10:53→11:53)
[2022-05-16] MEDS: SODIUM FERRIC GLUCONATE COMPLX 125 MG in SODIUM CHLORIDE 0.9% 100 ML IV SCH (10:53)
[2022-05-16] MEDS ORDERED: DEXAMETHASONE SOD PHOS 10 MG/1 ML VIAL IV ONE (12:00)
[2022-05-16] MEDS ORDERED: D5NS/KCL 20MEQ 1,000 ML IV SCH (12:45)
[2022-05-16 12:53] LABS: MEAN CORPUSCULAR HEMOGLOBIN 31.3 pg (28-32); MEAN CORPUSCULAR HGB CONC 30.3 g/dL (31-35); MEAN CORPUSCULAR VOLUME 103.3 fL (81-99); PLATELET COUNT 147 x10e3/uL (140-360); RED BLOOD COUNT 2.14 x10e6/uL (3.6-5.1); RED CELL DISTRIBUTION WIDTH 17.5 % (11.7-14.4)
[2022-05-16 13:26] LABS: HEMATOCRIT 22.1 % (34.2-44.1)
[2022-05-16 13:29] LABS: HEMOGLOBIN 6.7 g/dL (12.0-16.0)
[2022-05-16 13:30] LABS: PROTHROMBIN TIME 49.9 seconds (11.9-14.5)
[2022-05-16 13:31] LABS: INR 5.52; PARTIAL THROMBOPLASTIN TIME 146.5 seconds (23.8-35.5)
[2022-05-16] MEDS ORDERED: SODIUM CHLORIDE 0.9% 250ML 250 ML IV ONE ×2 (13:45→14:15)
[2022-05-16] MEDS ORDERED: POTASSIUM CHLORIDE 20MEQ/100ML 200 ML IV ONE (14:00)
[2022-05-16] MEDS ORDERED: DEXTROSE 5%/0.9% SOD CHL 1,000 ML IV SCH (14:00)
[2022-05-16] MEDS: Vancomycin IV 1 GM in SODIUM CHLORIDE 0.9% 250ML 250 ML IV SCH (14:17)
[2022-05-16 15:12] LABS: EOSINOPHILS % (MANUAL) 2 % (0-7); LYMPHOCYTES % (MANUAL) 26 % (19-48); MONOCYTES % (MANUAL) 10 % (3.4-9.0); NEUTROPHILS % (MANUAL) 40 % (40-74)
[2022-05-16 15:13] LABS: ANISOCYTOSIS MARKED; BAND NEUTROPHILS % (MANUAL) 17 %; METAMYELOCYTES % (MANUAL) 4 % (0-0); MYELOCYTES % (MANUAL) 1 % (0-0)
[2022-05-16 15:14] LABS: MICROCYTOSIS MODERATE; PLATELET ESTIMATE SLIGHTLY DECREASED; PLATELET MORPHOLOGY COMMENT NORMAL
[2022-05-16] MEDS: SOD CHL IV SCH (16:04)
[2022-05-16] MEDS: SODIUM BICARBONATE IV SCH (16:04)
[2022-05-16] MEDS: DEXTROSE IV SCH (16:04)
[2022-05-16 16:11] LABS: ABG HCO3 15 mmol/L (22-26); ABG PCO2 20 mmHg (35-45); ABG PH 7.49 (7.35-7.45); ABG PO2 90 mmHg (80-105); ABG TCO2 16
[2022-05-16 16:17] LABS: CLARITY,URINE CLOUDY (CLEAR); COLOR,URINE YELLOW (YELLOW)
[2022-05-16 16:18] LABS: KETONES,URINE NEGATIVE (NEGATIVE); LEUKOCYTE ESTERASE ,URINE TRACE (NEGATIVE); NITRITE,URINE POSITIVE (NEGATIVE); PROTEIN,URINE DIPSTICK 2+ (NEGATIVE); URINE UROBILINOGEN 0.2 mg/dL (0.2 - 1)
[2022-05-16 16:34] LABS: BACTERIA,URINE MANY /HPF
[2022-05-16 16:35] LABS: EPITHELIAL CELLS,URINE FEW /LPF; WBC,URINE (MAN) 21-50 /HPF (0-5)
[2022-05-16] MEDS: METOPROLOL TARTRATE INJ 1 MG/ML VIAL IV PRN (20:00)
[2022-05-16] MEDS: ACETAMINOPHEN 325 MG TAB PO PRN (21:13)
[2022-05-16 21:48] LABS: HEMATOCRIT 29.6 % (34.2-44.1); HEMOGLOBIN 9.2 g/dL (12.0-16.0); LYMPHOCYTES # (AUTO) 0.3 (1.0-3.2); LYMPHOCYTES % 11.6 % (18.0-39.1); MEAN CORPUSCULAR HEMOGLOBIN 29.5 pg (28-32); MEAN CORPUSCULAR HGB CONC 31.1 g/dL (31-35); MEAN CORPUSCULAR VOLUME 94.9 fL (81-99); MONOCYTES # (AUTO) 0.1 (0.2-0.8); MONOCYTES % 4.1 % (4.4-11.3); NEUTROPHILS % 83.5 % (38.7-80.0); PLATELET COUNT 117 x10e3/uL (140-360); RED BLOOD COUNT 3.12 x10e6/uL (3.6-5.1)
[2022-05-17] VITALS (31 sets, daily range): BP systolic 69–159; BP diastolic 41–107
[2022-05-17] MEDS: LACTULOSE SYRUP 20 GM/30 ML UDC NG SCH ×3 (02:23→09:00)
[2022-05-17] MEDS: ACETAMINOPHEN 325 MG TAB PO PRN (03:02)
[2022-05-17] MEDS: SODIUM BICARBONATE IV SCH (05:00)
[2022-05-17] MEDS: DEXTROSE IV SCH (05:00)
[2022-05-17] MEDS: SOD CHL IV SCH (05:00)
[2022-05-17 05:50] LABS: BASOPHILS % 0.5 % (0.0-1.0); HEMATOCRIT 27.9 % (34.2-44.1); HEMOGLOBIN 9.2 g/dL (12.0-16.0); LYMPHOCYTES # (AUTO) 0.5 (1.0-3.2); LYMPHOCYTES % 21.1 % (18.0-39.1); MEAN CORPUSCULAR HEMOGLOBIN 29.3 pg (28-32); MEAN CORPUSCULAR VOLUME 88.9 fL (81-99); MONOCYTES # (AUTO) 0.1 (0.2-0.8); MONOCYTES % 4.7 % (4.4-11.3); NEUTROPHILS # (AUTO) 1.6 (2.1-6.9); NEUTROPHILS % 73.7 % (38.7-80.0); PLATELET COUNT 102 x10e3/uL (140-360); RED BLOOD COUNT 3.14 x10e6/uL (3.6-5.1); RED CELL DISTRIBUTION WIDTH 21.2 % (11.7-14.4)
[2022-05-17 06:21] LABS: INR 2.75; PROTHROMBIN TIME 29.2 seconds (11.9-14.5)
[2022-05-17 06:22] LABS: PARTIAL THROMBOPLASTIN TIME 59.9 seconds (23.8-35.5)
[2022-05-17 06:37] LABS: ALBUMIN 3.3 g/dL (3.5-5.0); ALBUMIN/GLOBULIN RATIO 3.3 (0.8-2.0); ANION GAP 20.8 mmol/L (8-16); CALCIUM 7.8 mg/dL (8.4-10.2); CREATININE, SERUM 0.76 mg/dL (0.57-1.11); POTASSIUM 3.8 mmol/L (3.5-5.1)
[2022-05-17] MEDS: ALBUTEROL/IPRATROPIUM 3 ML NEB NEB PRN ×2 (07:25→12:30)
[2022-05-17] MEDS ORDERED: DEXMEDETOMIDINE 100 ML IV PRN (08:15)
[2022-05-17] MEDS: SODIUM BICARBONATE 8.4% 100 ML in DEXTROSE 5% 1,000 ML IV SCH ×2 (08:28→20:09)
[2022-05-17] MEDS ORDERED: SODIUM BICARBONATE 8.4% INJ 50 ML SYR IV ONE (08:30)
[2022-05-17 08:48] LABS: BAND NEUTROPHILS % (MANUAL) 8 %; LYMPHOCYTES % (MANUAL) 17 % (19-48); MONOCYTES % (MANUAL) 14 % (3.4-9.0); NEUTROPHILS % (MANUAL) 61 % (40-74); NUCLEATED RED BLOOD CELLS 2; PLATELET ESTIMATE SLIGHTLY DECREASED; PLATELET MORPHOLOGY COMMENT NORMAL; RBC MORPHOLOGY COMMENT NORMAL
[2022-05-17] MEDS ORDERED: SENNA-S TABLET PO SCH (09:00)
[2022-05-17] MEDS ORDERED: MAGNESIUM HYDROXIDE 30 ML UDC PO ONE (09:00)
[2022-05-17] MEDS ORDERED: DEXMEDETOMIDINE 400MCG/NS100ML 100 ML IV PRN (09:15)
[2022-05-17] MEDS ORDERED: FUROSEMIDE INJ 10 MG/ML 4 ML VIAL IV ONE (09:45)
[2022-05-17] MEDS ORDERED: SUCCINYLCHOLINE CHLORIDE 20 MG/ML 10ML VIAL ONE (09:57)
[2022-05-17] MEDS ORDERED: ETOMIDATE 2 MG/ML 10 ML INJ IV ONE (09:57)
[2022-05-17] MEDS: Vancomycin IV 1 GM in SODIUM CHLORIDE 0.9% 250ML 250 ML IV SCH (09:59)
[2022-05-17] MEDS: DOCUSATE SODIUM 100 MG CAP PO SCH (10:00)
[2022-05-17] MEDS: MONTELUKAST SODIUM 10 MG TAB PO SCH (10:00)
[2022-05-17 11:09] LABS: ABG PCO2 19 mmHg (35-45); ABG PH 7.66 (7.35-7.45); ABG PO2 89 mmHg (80-105)
[2022-05-17 11:10] LABS: ABG HCO3 21 mmol/L (22-26); ABG TCO2 21
[2022-05-17 11:13] LABS: ABG HCO3 17 mmol/L (22-26); ABG PCO2 24 mmHg (35-45); ABG PH 7.46 (7.35-7.45); ABG PO2 55 mmHg (80-105); ABG TCO2 18
[2022-05-17] MEDS ORDERED: SODIUM CHLORIDE 0.45% 500 ML IV ONE (11:45)
[2022-05-17 16:51] LABS: BASOPHILS % 0.4 % (0.0-1.0); HEMATOCRIT 28.1 % (34.2-44.1); HEMOGLOBIN 8.6 g/dL (12.0-16.0); LYMPHOCYTES # (AUTO) 0.4 (1.0-3.2); LYMPHOCYTES % 16.3 % (18.0-39.1); MEAN CORPUSCULAR HEMOGLOBIN 29.1 pg (28-32); MEAN CORPUSCULAR HGB CONC 30.6 g/dL (31-35); MEAN CORPUSCULAR VOLUME 94.9 fL (81-99); MONOCYTES # (AUTO) 0.1 (0.2-0.8); MONOCYTES % 3.2 % (4.4-11.3); NEUTROPHILS % 80.1 % (38.7-80.0); PLATELET COUNT 69 x10e3/uL (140-360); RED BLOOD COUNT 2.96 x10e6/uL (3.6-5.1); RED CELL DISTRIBUTION WIDTH 21.6 % (11.7-14.4)
[2022-05-17] MEDS ORDERED: SODIUM CHLORIDE 0.9% 250ML 250 ML ONE (18:08)
[2022-05-17] MEDS ORDERED: FENTANYL 2000MCG/NS 250 250 ML IV PRN ×2 (18:45→19:30)
[2022-05-17] MEDS: PROPOFOL IV EMULSION 10MG/ML 100 ML IV PRN (19:12)
[2022-05-17 20:11] LABS: ABG HCO3 24 mmol/L (22-26); ABG PCO2 36 mmHg (35-45); ABG PH 7.43 (7.35-7.45); ABG PO2 60 mmHg (80-105); ABG TCO2 25
[2022-05-18] VITALS (70 sets, daily range): BP systolic 76–146; BP diastolic 55–101
[2022-05-18] MEDS: SODIUM BICARBONATE 8.4% 100 ML in DEXTROSE 5% 1,000 ML IV SCH (06:06)
[2022-05-18 06:32] LABS: BASOPHILS % 0.3 % (0.0-1.0); HEMATOCRIT 27.3 % (34.2-44.1); HEMOGLOBIN 8.5 g/dL (12.0-16.0); LYMPHOCYTES # (AUTO) 0.8 (1.0-3.2); LYMPHOCYTES % 25.2 % (18.0-39.1); MEAN CORPUSCULAR HEMOGLOBIN 29.3 pg (28-32); MEAN CORPUSCULAR HGB CONC 31.1 g/dL (31-35); MEAN CORPUSCULAR VOLUME 94.1 fL (81-99); MONOCYTES # (AUTO) 0.1 (0.2-0.8); MONOCYTES % 1.9 % (4.4-11.3); NEUTROPHILS # (AUTO) 2.3 (2.1-6.9); NEUTROPHILS % 72.6 % (38.7-80.0); PLATELET COUNT 60 x10e3/uL (140-360); RED CELL DISTRIBUTION WIDTH 21.3 % (11.7-14.4)
[2022-05-18 06:44] LABS: INR 1.6; PROTHROMBIN TIME 19.2 seconds (11.9-14.5)
[2022-05-18 06:55] LABS: ALBUMIN 2.6 g/dL (3.5-5.0); ALBUMIN/GLOBULIN RATIO 1.6 (0.8-2.0); ANION GAP 19.4 mmol/L (8-16); CALCIUM 7.1 mg/dL (8.4-10.2); CREATININE, SERUM 0.66 mg/dL (0.57-1.11)
[2022-05-18 06:59] LABS: POTASSIUM 2.4 mmol/L (3.5-5.1)
[2022-05-18] MEDS: PROPOFOL IV EMULSION 10MG/ML 100 ML IV PRN ×2 (07:07→22:34)
[2022-05-18] MEDS: POTASSIUM CHLORIDE 20MEQ/100ML 100 ML IV SCH ×2 (07:30→08:44)
[2022-05-18] MEDS: MONTELUKAST SODIUM 10 MG TAB PO SCH (08:45)
[2022-05-18] MEDS: LACTULOSE SYRUP 20 GM/30 ML UDC NG SCH (08:45)
[2022-05-18] MEDS: DOCUSATE SODIUM 100 MG CAP PO SCH (08:45)
[2022-05-18] MEDS: POTASSIUM CHLORIDE 20 MEQ in DEXTROSE 5% 1,000 ML IV SCH ×2 (09:06→19:48)
[2022-05-18 14:11] LABS: ABG HCO3 27 mmol/L (22-26); ABG PCO2 30 mmHg (35-45); ABG PH 7.57 (7.35-7.45); ABG PO2 193 mmHg (80-105); ABG TCO2 28
[2022-05-18] MEDS ORDERED: DEXMEDETOMIDINE 400MCG/NS100ML 100 ML IV PRN (15:00)
[2022-05-18 15:27] LABS: BASOPHILS % 0.2 % (0.0-1.0); EOSINOPHILS % 0.5 % (0.0-6.0); HEMATOCRIT 27.8 % (34.2-44.1); HEMOGLOBIN 8.4 g/dL (12.0-16.0); LYMPHOCYTES # (AUTO) 0.7 (1.0-3.2); LYMPHOCYTES % 12.2 % (18.0-39.1); MEAN CORPUSCULAR HEMOGLOBIN 28.9 pg (28-32); MEAN CORPUSCULAR HGB CONC 30.2 g/dL (31-35); MEAN CORPUSCULAR VOLUME 95.5 fL (81-99); MONOCYTES # (AUTO) 0.1 (0.2-0.8); MONOCYTES % 0.9 % (4.4-11.3); NEUTROPHILS # (AUTO) 4.8 (2.1-6.9); PLATELET COUNT 54 x10e3/uL (140-360); RED BLOOD COUNT 2.91 x10e6/uL (3.6-5.1); RED CELL DISTRIBUTION WIDTH 21.8 % (11.7-14.4)
[2022-05-18 15:28] LABS: ABG PH 7.51 (7.35-7.45)
[2022-05-18 15:29] LABS: ABG HCO3 23 mmol/L (22-26); ABG PCO2 29 mmHg (35-45); ABG PO2 70 mmHg (80-105); ABG TCO2 24
[2022-05-18 15:40] LABS: ALBUMIN 2.5 g/dL (3.5-5.0); ALBUMIN/GLOBULIN RATIO 1.6 (0.8-2.0); ANION GAP 18.7 mmol/L (8-16); CALCIUM 7.1 mg/dL (8.4-10.2); CREATININE, SERUM 0.67 mg/dL (0.57-1.11)
[2022-05-18 15:53] LABS: POTASSIUM 2.7 mmol/L (3.5-5.1)
[2022-05-18] MEDS ORDERED: POTASSIUM CHLORIDE 20MEQ/100ML 200 ML IV ONE ×2 (16:00→21:15)
[2022-05-18] MEDS: VASOPRESSIN 60 UNIT in DEXTROSE 5% 50ML 57 ML IV PRN (19:47)
[2022-05-18] MEDS: VANCOMYCIN 250MG/5ML ORAL SOLN PO SCH (20:00)
[2022-05-18] MEDS ORDERED: POTASSIUM CHLORIDE 20MEQ/100ML 200 ML IV SCH (21:00)
[2022-05-19] VITALS (97 sets, daily range): BP systolic 60–173; BP diastolic 43–107
[2022-05-19] MEDS: VANCOMYCIN 250MG/5ML ORAL SOLN PO SCH ×4 (01:11→17:13)
[2022-05-19] MEDS: POTASSIUM CHLORIDE 20 MEQ in DEXTROSE 5% 1,000 ML IV SCH (05:27)
[2022-05-19 06:53] LABS: BASOPHILS % 0.3 % (0.0-1.0); EOSINOPHILS % 0.3 % (0.0-6.0); HEMATOCRIT 26.6 % (34.2-44.1); LYMPHOCYTES # (AUTO) 0.6 (1.0-3.2); LYMPHOCYTES % 8.8 % (18.0-39.1); MEAN CORPUSCULAR HEMOGLOBIN 29.3 pg (28-32); MEAN CORPUSCULAR HGB CONC 30.1 g/dL (31-35); MEAN CORPUSCULAR VOLUME 97.4 fL (81-99); MONOCYTES # (AUTO) 0.1 (0.2-0.8); MONOCYTES % 1.4 % (4.4-11.3); NEUTROPHILS # (AUTO) 5.6 (2.1-6.9); NEUTROPHILS % 88.1 % (38.7-80.0); RED BLOOD COUNT 2.73 x10e6/uL (3.6-5.1); RED CELL DISTRIBUTION WIDTH 21.9 % (11.7-14.4)
[2022-05-19 07:03] LABS: INR 1.59; PROTHROMBIN TIME 19.1 seconds (11.9-14.5)
[2022-05-19 07:10] LABS: PLATELET COUNT 29 x10e3/uL (140-360)
[2022-05-19 07:14] LABS: ALBUMIN 2.2 g/dL (3.5-5.0); ALBUMIN/GLOBULIN RATIO 1.4 (0.8-2.0); ANION GAP 17.5 mmol/L (8-16); BILIRUBIN,DIRECT 2.5 mg/dL (0.0-0.5); CREATININE, SERUM 0.59 mg/dL (0.57-1.11); POTASSIUM 4.5 mmol/L (3.5-5.1)
[2022-05-19 07:17] LABS: CALCIUM 6.9 mg/dL (8.4-10.2)
[2022-05-19] MEDS: PROPOFOL IV EMULSION 10MG/ML 100 ML IV PRN ×2 (08:20→19:02)
[2022-05-19] MEDS ORDERED: SODIUM CHLORIDE 0.9% 1000ML 1,000 ML ONE (08:31)
[2022-05-19] MEDS: VASOPRESSIN 60 UNIT in DEXTROSE 5% 50ML 57 ML IV PRN (08:38)
[2022-05-19] MEDS ORDERED: VECURONIUM BROMIDE FOR INJ 20 MG VIAL IV STA (09:02)
[2022-05-19] MEDS ORDERED: ALBUMIN 25% 25GM 100ML 0.25 GM/ML BTL IV SCH (09:15)
[2022-05-19] MEDS ORDERED: VECURONIUM BROMIDE FOR INJ 20 MG VIAL ONE (09:17)
[2022-05-19] MEDS: NOREPINEPHRINE 8 MG/D5W 250 ML 250 ML IV SCH (09:20)
[2022-05-19] MEDS: ALBUMIN 25% 25GM 100ML 100 ML IV SCH ×3 (09:22→22:15)
[2022-05-19 09:23] LABS: ABG PCO2 41 mmHg (35-45)
[2022-05-19] MEDS: FONDAPARINUX SODIUM 2.5 MG/0.5 ML SYR SQ SCH (09:23)
[2022-05-19 09:24] LABS: ABG HCO3 20 mmol/L (22-26); ABG PO2 31 mmHg (80-105); ABG TCO2 21
[2022-05-19 09:26] LABS: ABG PCO2 35 mmHg (35-45); ABG PH 7.38 (7.35-7.45)
[2022-05-19 09:27] LABS: ABG HCO3 21 mmol/L (22-26); ABG PO2 35 mmHg (80-105); ABG TCO2 22
[2022-05-19 09:35] LABS: BAND NEUTROPHILS % (MANUAL) 14 %; EOSINOPHILS % (MANUAL) 2 % (0-7); LYMPHOCYTES % (MANUAL) 8 % (19-48); NEUTROPHILS % (MANUAL) 75 % (40-74); PLATELET ESTIMATE MARKEDLY DECREASED; PLATELET MORPHOLOGY COMMENT NORMAL
[2022-05-19 09:37] LABS: ANISOCYTOSIS SLIGHT
[2022-05-19] MEDS: METOPROLOL TARTRATE INJ 1 MG/ML VIAL IV PRN (11:08)
[2022-05-19] MEDS: MEROPENEM 1 GM in SODIUM CHLORIDE 0.9% 100 ML IV SCH ×2 (11:09→17:13)
[2022-05-19] MEDS: ACETAMINOPHEN 325 MG TAB PO PRN (13:36)
[2022-05-19] MEDS: FUROSEMIDE INJ 10 MG/ML 4 ML VIAL IV SCH ×2 (14:02→22:16)
[2022-05-19 15:15] LABS: ABG HCO3 20 mmol/L (22-26); ABG PCO2 38 mmHg (35-45); ABG PH 7.33 (7.35-7.45); ABG PO2 117 mmHg (80-105); ABG TCO2 21
[2022-05-19 15:18] LABS: ABG HCO3 19 mmol/L (22-26); ABG PCO2 34 mmHg (35-45); ABG PH 7.36 (7.35-7.45); ABG PO2 70 mmHg (80-105); ABG TCO2 20
[2022-05-19] MEDS ORDERED: GENTAMICIN SULFATE 300 MG in SODIUM CHLORIDE 0.9% 100 ML IV ONE (16:30)
[2022-05-20] VITALS (92 sets, daily range): BP systolic 86–163; BP diastolic 59–103
[2022-05-20] MEDS: VANCOMYCIN 250MG/5ML ORAL SOLN PO SCH ×4 (00:10→18:18)
[2022-05-20] MEDS: MEROPENEM 1 GM in SODIUM CHLORIDE 0.9% 100 ML IV SCH ×3 (01:54→18:18)
[2022-05-20 06:43] LABS: BASOPHILS % 0.2 % (0.0-1.0); EOSINOPHILS % 0.2 % (0.0-6.0); HEMOGLOBIN 7.2 g/dL (12.0-16.0); LYMPHOCYTES # (AUTO) 0.5 (1.0-3.2); LYMPHOCYTES % 9.2 % (18.0-39.1); MEAN CORPUSCULAR HEMOGLOBIN 29.1 pg (28-32); MEAN CORPUSCULAR VOLUME 97.2 fL (81-99); MONOCYTES # (AUTO) 0.1 (0.2-0.8); MONOCYTES % 1.5 % (4.4-11.3); NEUTROPHILS # (AUTO) 4.7 (2.1-6.9); NEUTROPHILS % 88.1 % (38.7-80.0); RED BLOOD COUNT 2.47 x10e6/uL (3.6-5.1); RED CELL DISTRIBUTION WIDTH 20.8 % (11.7-14.4)
[2022-05-20 06:54] LABS: PLATELET COUNT 45 x10e3/uL (140-360)
[2022-05-20 07:17] LABS: ALBUMIN 3.1 g/dL (3.5-5.0); ALBUMIN/GLOBULIN RATIO 1.8 (0.8-2.0); ANION GAP 17.3 mmol/L (8-16); CALCIUM 7.5 mg/dL (8.4-10.2); CREATININE, SERUM 0.69 mg/dL (0.57-1.11); POTASSIUM 3.3 mmol/L (3.5-5.1)
[2022-05-20] MEDS: VASOPRESSIN 60 UNIT in DEXTROSE 5% 50ML 57 ML IV PRN ×2 (07:18→18:47)
[2022-05-20] MEDS: PROPOFOL IV EMULSION 10MG/ML 100 ML IV PRN ×2 (07:18→16:52)
[2022-05-20] MEDS ORDERED: FUROSEMIDE INJ 10 MG/ML 2 ML VIAL IV ONE (08:00)
[2022-05-20] MEDS ORDERED: SODIUM CHLORIDE 0.9% 250ML 250 ML IV ONE (08:00)
[2022-05-20] MEDS: POTASSIUM CHLORIDE 20MEQ/100ML 100 ML IV SCH ×2 (08:12→10:54)
[2022-05-20 08:20] LABS: BAND NEUTROPHILS % (MANUAL) 2 %; LYMPHOCYTES % (MANUAL) 3 % (19-48); METAMYELOCYTES % (MANUAL) 1 % (0-0); MONOCYTES % (MANUAL) 1 % (3.4-9.0); NEUTROPHILS % (MANUAL) 93 % (40-74); PLATELET ESTIMATE MARKEDLY DECREASED; PLATELET MORPHOLOGY COMMENT NORMAL; RBC MORPHOLOGY COMMENT NORMAL
[2022-05-20 08:29] LABS: ABG HCO3 21 mmol/L (22-26); ABG PCO2 35 mmHg (35-45); ABG PH 7.39 (7.35-7.45); ABG PO2 70 mmHg (80-105); ABG TCO2 22
[2022-05-20] MEDS ORDERED: FUROSEMIDE INJ 10 MG/ML 4 ML VIAL IV ONE (08:30)
[2022-05-20] MEDS: NOREPINEPHRINE 8 MG/D5W 250 ML 250 ML IV SCH ×2 (09:00→18:19)
[2022-05-20] MEDS: FONDAPARINUX SODIUM 2.5 MG/0.5 ML SYR SQ SCH (09:35)
[2022-05-20] MEDS: RIFAXIMIN 550 MG TABLET PO SCH ×2 (09:35→16:53)
[2022-05-20] MEDS ORDERED: SODIUM CHLORIDE 0.9% 250ML 250 ML ONE (12:27)
[2022-05-20] MEDS ORDERED: FUROSEMIDE INJ 10 MG/ML 4 ML VIAL ONE (15:44)
[2022-05-20] MEDS: ACETAMINOPHEN 325 MG TAB PO PRN (16:05)
[2022-05-20 16:48] LABS: ABG HCO3 23 mmol/L (22-26); ABG PCO2 37 mmHg (35-45); ABG PH 7.41 (7.35-7.45); ABG PO2 191 mmHg (80-105); ABG TCO2 24
[2022-05-20] MEDS: METOPROLOL TARTRATE INJ 1 MG/ML VIAL IV PRN (16:53)
[2022-05-21] VITALS (60 sets, daily range): BP systolic 72–135; BP diastolic 53–94
[2022-05-21] MEDS: VANCOMYCIN 250MG/5ML ORAL SOLN PO SCH ×4 (00:14→17:48)
[2022-05-21] MEDS: MEROPENEM 1 GM in SODIUM CHLORIDE 0.9% 100 ML IV SCH ×3 (00:53→17:48)
[2022-05-21] MEDS: PROPOFOL IV EMULSION 10MG/ML 100 ML IV PRN ×2 (00:53→14:53)
[2022-05-21 06:05] LABS: BASOPHILS % 0.3 % (0.0-1.0); EOSINOPHILS # (AUTO) 0.1 (0.0-0.4); EOSINOPHILS % 0.7 % (0.0-6.0); HEMATOCRIT 30.7 % (34.2-44.1); HEMOGLOBIN 9.5 g/dL (12.0-16.0); LYMPHOCYTES # (AUTO) 0.5 (1.0-3.2); LYMPHOCYTES % 6.1 % (18.0-39.1); MEAN CORPUSCULAR HGB CONC 30.9 g/dL (31-35); MEAN CORPUSCULAR VOLUME 96.8 fL (81-99); MONOCYTES # (AUTO) 0.2 (0.2-0.8); MONOCYTES % 1.7 % (4.4-11.3); NEUTROPHILS % 90.2 % (38.7-80.0); RED BLOOD COUNT 3.17 x10e6/uL (3.6-5.1); RED CELL DISTRIBUTION WIDTH 18.9 % (11.7-14.4)
[2022-05-21 06:10] LABS: PLATELET COUNT 38 x10e3/uL (140-360)
[2022-05-21 06:50] LABS: ALBUMIN 2.3 g/dL (3.5-5.0); ANION GAP 17.2 mmol/L (8-16); CALCIUM 7.3 mg/dL (8.4-10.2); CREATININE, SERUM 0.66 mg/dL (0.57-1.11); POTASSIUM 3.2 mmol/L (3.5-5.1)
[2022-05-21 08:08] LABS: BAND NEUTROPHILS % (MANUAL) 5 %; LYMPHOCYTES % (MANUAL) 5 % (19-48); NEUTROPHILS % (MANUAL) 90 % (40-74); PLATELET ESTIMATE MARKEDLY DECREASED; PLATELET MORPHOLOGY COMMENT NORMAL; RBC MORPHOLOGY COMMENT NORMAL
[2022-05-21] MEDS ORDERED: FUROSEMIDE INJ 10 MG/ML 4 ML VIAL IV ONE (08:30)
[2022-05-21 09:10] LABS: ABG HCO3 23 mmol/L (22-26); ABG PCO2 44 mmHg (35-45); ABG PH 7.33 (7.35-7.45); ABG PO2 238 mmHg (80-105); ABG TCO2 24
[2022-05-21] MEDS: ENOXAPARIN SOD INJ 40 MG/0.4 ML SYR SC SCH (09:15)
[2022-05-21] MEDS: POTASSIUM CHLORIDE 20MEQ/100ML 100 ML IV SCH ×2 (09:32→12:29)
[2022-05-21] MEDS: RIFAXIMIN 550 MG TABLET PO SCH ×2 (09:32→17:48)
[2022-05-21] MEDS: FUROSEMIDE INJ 100 MG in SODIUM CHLORIDE 0.9% 90 ML IV SCH (13:49)
[2022-05-21] MEDS: VASOPRESSIN 60 UNIT in DEXTROSE 5% 50ML 57 ML IV PRN (17:58)
[2022-05-22] VITALS (86 sets, daily range): BP systolic 95–155; BP diastolic 62–102
[2022-05-22] MEDS: VANCOMYCIN 250MG/5ML ORAL SOLN PO SCH ×2 (00:01→06:02)
[2022-05-22] MEDS: PROPOFOL IV EMULSION 10MG/ML 100 ML IV PRN (01:22)
[2022-05-22] MEDS: MEROPENEM 1 GM in SODIUM CHLORIDE 0.9% 100 ML IV SCH ×3 (02:13→17:00)
[2022-05-22] MEDS: FUROSEMIDE INJ 100 MG in SODIUM CHLORIDE 0.9% 90 ML IV SCH (06:32)
[2022-05-22 06:59] LABS: BASOPHILS % 0.2 % (0.0-1.0); EOSINOPHILS # (AUTO) 0.1 (0.0-0.4); HEMATOCRIT 29.3 % (34.2-44.1); HEMOGLOBIN 9.3 g/dL (12.0-16.0); LYMPHOCYTES # (AUTO) 0.7 (1.0-3.2); LYMPHOCYTES % 6.6 % (18.0-39.1); MEAN CORPUSCULAR HEMOGLOBIN 30.1 pg (28-32); MEAN CORPUSCULAR HGB CONC 31.7 g/dL (31-35); MEAN CORPUSCULAR VOLUME 94.8 fL (81-99); MONOCYTES # (AUTO) 0.2 (0.2-0.8); MONOCYTES % 1.8 % (4.4-11.3); NEUTROPHILS # (AUTO) 8.9 (2.1-6.9); NEUTROPHILS % 89.3 % (38.7-80.0); PLATELET COUNT 50 x10e3/uL (140-360); RED BLOOD COUNT 3.09 x10e6/uL (3.6-5.1); RED CELL DISTRIBUTION WIDTH 18.7 % (11.7-14.4)
[2022-05-22 07:04] LABS: INR 1.3; PROTHROMBIN TIME 16.4 seconds (11.9-14.5)
[2022-05-22 07:17] LABS: ALBUMIN 2.2 g/dL (3.5-5.0); ALBUMIN/GLOBULIN RATIO 0.9 (0.8-2.0); ANION GAP 18.8 mmol/L (8-16); CALCIUM 7.4 mg/dL (8.4-10.2); CREATININE, SERUM 0.7 mg/dL (0.57-1.11)
[2022-05-22 07:33] LABS: POTASSIUM 2.8 mmol/L (3.5-5.1)
[2022-05-22] MEDS ORDERED: POTASSIUM CHLORIDE 20MEQ/100ML 200 ML IV ONE ×2 (08:30→17:00)
[2022-05-22] MEDS: NOREPINEPHRINE 8 MG/D5W 250 ML 250 ML IV SCH (09:00)
[2022-05-22] MEDS: RIFAXIMIN 550 MG TABLET PO SCH ×2 (09:34→17:00)
[2022-05-22] MEDS: ALBUMIN 25% 25GM 100ML 0.25 GM/ML BTL IV SCH ×3 (09:34→17:00)
[2022-05-22] MEDS: ENOXAPARIN SOD INJ 40 MG/0.4 ML SYR SC SCH (09:57)
[2022-05-22 10:34] LABS: ABG HCO3 25 mmol/L (22-26); ABG PCO2 39 mmHg (35-45); ABG PH 7.41 (7.35-7.45); ABG PO2 100 mmHg (80-105)
[2022-05-22 10:35] LABS: ABG TCO2 26
[2022-05-22 10:36] LABS: BAND NEUTROPHILS % (MANUAL) 4 %; EOSINOPHILS % (MANUAL) 1 % (0-7); LYMPHOCYTES % (MANUAL) 8 % (19-48); MONOCYTES % (MANUAL) 1 % (3.4-9.0); NEUTROPHILS % (MANUAL) 86 % (40-74)
[2022-05-22 10:38] LABS: PLATELET ESTIMATE MODERATELY DECREASED; PLATELET MORPHOLOGY COMMENT NORMAL; RBC MORPHOLOGY COMMENT NORMAL
[2022-05-22] MEDS: EYE LUBRICANT OPTH OINT 3.5GM TUBE OP SCH (17:00)
[2022-05-22] MEDS: VASOPRESSIN 60 UNIT in DEXTROSE 5% 50ML 57 ML IV PRN (19:21)
[2022-05-23] VITALS (77 sets, daily range): BP systolic 83–134; BP diastolic 46–87
[2022-05-23] MEDS: PROPOFOL IV EMULSION 10MG/ML 100 ML IV PRN ×2 (01:52→14:44)
[2022-05-23] MEDS: FUROSEMIDE INJ 100 MG in SODIUM CHLORIDE 0.9% 90 ML IV SCH ×2 (01:53→19:55)
[2022-05-23] MEDS: MEROPENEM 1 GM in SODIUM CHLORIDE 0.9% 100 ML IV SCH ×3 (03:22→17:51)
[2022-05-23 06:51] LABS: ABG HCO3 25 mmol/L (22-26); ABG PCO2 50 mmHg (35-45); ABG PH 7.31 (7.35-7.45); ABG PO2 77 mmHg (80-105); ABG TCO2 26
[2022-05-23 07:20] LABS: BASOPHILS % 0.2 % (0.0-1.0); EOSINOPHILS % 0.2 % (0.0-6.0); HEMATOCRIT 24.9 % (34.2-44.1); HEMOGLOBIN 7.6 g/dL (12.0-16.0); LYMPHOCYTES # (AUTO) 0.5 (1.0-3.2); LYMPHOCYTES % 5.6 % (18.0-39.1); MEAN CORPUSCULAR HEMOGLOBIN 29.6 pg (28-32); MEAN CORPUSCULAR HGB CONC 30.5 g/dL (31-35); MEAN CORPUSCULAR VOLUME 96.9 fL (81-99); MONOCYTES # (AUTO) 0.3 (0.2-0.8); MONOCYTES % 2.8 % (4.4-11.3); NEUTROPHILS # (AUTO) 8.3 (2.1-6.9); NEUTROPHILS % 89.9 % (38.7-80.0); PLATELET COUNT 75 x10e3/uL (140-360); RED BLOOD COUNT 2.57 x10e6/uL (3.6-5.1); RED CELL DISTRIBUTION WIDTH 19.3 % (11.7-14.4)
[2022-05-23 07:45] LABS: ALBUMIN/GLOBULIN RATIO 1.4 (0.8-2.0); ANION GAP 18.6 mmol/L (8-16); CALCIUM 7.7 mg/dL (8.4-10.2); CREATININE, SERUM 0.79 mg/dL (0.57-1.11); POTASSIUM 3.6 mmol/L (3.5-5.1)
[2022-05-23] MEDS: ENOXAPARIN SOD INJ 40 MG/0.4 ML SYR SC SCH (08:24)
[2022-05-23] MEDS: RIFAXIMIN 550 MG TABLET PO SCH ×2 (08:25→17:51)
[2022-05-23] MEDS: EYE LUBRICANT OPTH OINT 3.5GM TUBE OP SCH ×2 (08:27→17:51)
[2022-05-23] MEDS ORDERED: POTASSIUM CHLORIDE 20MEQ/100ML 200 ML IV ONE (08:45)
[2022-05-23] MEDS: FENTANYL 2000MCG/NS 250 250 ML IV PRN (10:16)
[2022-05-24] VITALS (87 sets, daily range): BP systolic 81–120; BP diastolic 51–79
[2022-05-24] MEDS: MEROPENEM 1 GM in SODIUM CHLORIDE 0.9% 100 ML IV SCH ×3 (01:49→17:18)
[2022-05-24] MEDS: PROPOFOL IV EMULSION 10MG/ML 100 ML IV PRN ×3 (02:28→22:25)
[2022-05-24 07:05] LABS: BASOPHILS % 0.2 % (0.0-1.0); EOSINOPHILS % 0.2 % (0.0-6.0); HEMATOCRIT 24.7 % (34.2-44.1); LYMPHOCYTES # (AUTO) 0.4 (1.0-3.2); MEAN CORPUSCULAR HEMOGLOBIN 29.8 pg (28-32); MEAN CORPUSCULAR HGB CONC 30.4 g/dL (31-35); MONOCYTES # (AUTO) 0.3 (0.2-0.8); MONOCYTES % 2.6 % (4.4-11.3); NEUTROPHILS # (AUTO) 11.5 (2.1-6.9); NEUTROPHILS % 92.2 % (38.7-80.0); PLATELET COUNT 142 x10e3/uL (140-360); RED BLOOD COUNT 2.52 x10e6/uL (3.6-5.1); RED CELL DISTRIBUTION WIDTH 19.4 % (11.7-14.4)
[2022-05-24 07:10] LABS: HEMOGLOBIN 7.6 g/dL (12.0-16.0)
[2022-05-24 07:29] LABS: ALBUMIN 2.5 g/dL (3.5-5.0); ANION GAP 19.5 mmol/L (8-16); CALCIUM 7.7 mg/dL (8.4-10.2); CREATININE, SERUM 0.69 mg/dL (0.57-1.11)
[2022-05-24 07:39] LABS: MAGNESIUM 1.8 MG/DL (1.3-2.1); PHOSPHORUS 0.9 MG/DL (2.3-4.7); POTASSIUM 2.5 mmol/L (3.5-5.1)
[2022-05-24 08:25] LABS: ABG HCO3 29 mmol/L (22-26); ABG PCO2 50 mmHg (35-45); ABG PH 7.37 (7.35-7.45); ABG PO2 162 mmHg (80-105); ABG TCO2 30
[2022-05-24] MEDS: RIFAXIMIN 550 MG TABLET PO SCH ×2 (09:43→16:08)
[2022-05-24] MEDS: POTASSIUM CHLORIDE 20MEQ/100ML 100 ML IV SCH ×4 (09:44→18:25)
[2022-05-24] MEDS: EYE LUBRICANT OPTH OINT 3.5GM TUBE OP SCH ×2 (09:45→16:09)
[2022-05-24] MEDS: ENOXAPARIN SOD INJ 40 MG/0.4 ML SYR SC SCH (09:45)
[2022-05-24] MEDS ORDERED: POTASSIUM PHOSPHATE 15 MM in SODIUM CHLORIDE 0.9% 250ML 250 ML IV ONE (10:00)
[2022-05-24 11:05] LABS: LYMPHOCYTES % (MANUAL) 2 % (19-48); MONOCYTES % (MANUAL) 3 % (3.4-9.0); NEUTROPHILS % (MANUAL) 95 % (40-74); NUCLEATED RED BLOOD CELLS 1; PLATELET ESTIMATE SLIGHTLY DECREASED; PLATELET MORPHOLOGY COMMENT NORMAL; RBC MORPHOLOGY COMMENT NORMAL
[2022-05-24 14:43] LABS: INR 1.41; PROTHROMBIN TIME 17.5 seconds (11.9-14.5)
[2022-05-24] MEDS: FUROSEMIDE INJ 100 MG in SODIUM CHLORIDE 0.9% 90 ML IV SCH (16:08)
[2022-05-24] MEDS: ACETAMINOPHEN 325 MG/10 ML UDC NG PRN (17:39)
[2022-05-24] MEDS ORDERED: DIPHENOXYLATE/ATROPINE TAB PO ONE (23:45)
[2022-05-25] VITALS (29 sets, daily range): BP systolic 89–154; BP diastolic 55–93
[2022-05-25] MEDS: MEROPENEM 1 GM in SODIUM CHLORIDE 0.9% 100 ML IV SCH ×2 (01:40→09:14)
[2022-05-25] MEDS: ACETAMINOPHEN 325 MG/10 ML UDC NG PRN ×2 (01:53→12:30)
[2022-05-25 06:43] LABS: BASOPHILS # (AUTO) 0.1 (0.0-0.1); BASOPHILS % 0.7 % (0.0-1.0); EOSINOPHILS % 0.4 % (0.0-6.0); LYMPHOCYTES # (AUTO) 0.4 (1.0-3.2); LYMPHOCYTES % 4.2 % (18.0-39.1); MEAN CORPUSCULAR HEMOGLOBIN 30.4 pg (28-32); MEAN CORPUSCULAR HGB CONC 31.8 g/dL (31-35); MEAN CORPUSCULAR VOLUME 95.7 fL (81-99); MONOCYTES # (AUTO) 0.3 (0.2-0.8); MONOCYTES % 3.4 % (4.4-11.3); NEUTROPHILS % 89.6 % (38.7-80.0); PLATELET COUNT 211 x10e3/uL (140-360); RED CELL DISTRIBUTION WIDTH 19.7 % (11.7-14.4)
[2022-05-25 06:56] LABS: ALBUMIN 2.2 g/dL (3.5-5.0); ALBUMIN/GLOBULIN RATIO 0.8 (0.8-2.0); ANION GAP 20.4 mmol/L (8-16); CALCIUM 7.8 mg/dL (8.4-10.2); CREATININE, SERUM 0.72 mg/dL (0.57-1.11); POTASSIUM 3.4 mmol/L (3.5-5.1)
[2022-05-25 07:49] LABS: ABG HCO3 29 mmol/L (22-26); ABG PCO2 48 mmHg (35-45); ABG PH 7.38 (7.35-7.45); ABG PO2 115 mmHg (80-105); ABG TCO2 30
[2022-05-25] MEDS ORDERED: SODIUM CHLORIDE 0.9% 250ML 250 ML IV ONE (08:15)
[2022-05-25] MEDS ORDERED: SODIUM CHLORIDE 0.9% 1000ML 1,000 ML IV SCH (08:15)
[2022-05-25] MEDS ORDERED: SODIUM CHLORIDE 0.45% 1,000 ML IV ONE (08:30)
[2022-05-25] MEDS: ENOXAPARIN SOD INJ 40 MG/0.4 ML SYR SC SCH (09:14)
[2022-05-25] MEDS: EYE LUBRICANT OPTH OINT 3.5GM TUBE OP SCH ×2 (09:14→17:10)
[2022-05-25] MEDS: POTASSIUM CHLORIDE 20MEQ/100ML 100 ML IV SCH ×2 (09:16→10:59)
[2022-05-25 13:33] LABS: BAND NEUTROPHILS % (MANUAL) 3 %; LYMPHOCYTES % (MANUAL) 20 % (19-48); MONOCYTES % (MANUAL) 4 % (3.4-9.0); NEUTROPHILS % (MANUAL) 73 % (40-74)
[2022-05-25 13:37] LABS: PLATELET MORPHOLOGY COMMENT NORMAL; RBC MORPHOLOGY COMMENT NORMAL
[2022-05-25] MEDS: VASOPRESSIN 60 UNIT in DEXTROSE 5% 50ML 57 ML IV PRN (13:57)
[2022-05-25] MEDS ORDERED: DEXTROSE 5% 1,000 ML IV ONE ×2 (15:30→19:45)
[2022-05-25 15:47] LABS: ABG HCO3 26 mmol/L (22-26); ABG PCO2 40 mmHg (35-45); ABG PH 7.41 (7.35-7.45); ABG PO2 78 mmHg (80-105)
[2022-05-25 15:48] LABS: ABG TCO2 27
[2022-05-25 16:37] LABS: CLARITY,URINE SL CLOUDY (CLEAR); COLOR,URINE AMBER (YELLOW); KETONES,URINE NEGATIVE (NEGATIVE); LEUKOCYTE ESTERASE ,URINE NEGATIVE (NEGATIVE); NITRITE,URINE NEGATIVE (NEGATIVE); PROTEIN,URINE DIPSTICK 1+ (NEGATIVE); URINE UROBILINOGEN 0.2 mg/dL (0.2 - 1)
[2022-05-25 16:42] LABS: AMORPHOUS SEDIMENT,URINE MODERATE (FEW); BACTERIA,URINE MANY /HPF; EPITHELIAL CELLS,URINE RARE /LPF; HYALINE CASTS 0-1 (0-1)
[2022-05-25 16:43] LABS: YEAST,URINE MODERATE
[2022-05-25 18:27] LABS: BASOPHILS % 0.4 % (0.0-1.0); EOSINOPHILS # (AUTO) 0.1 (0.0-0.4); EOSINOPHILS % 0.8 % (0.0-6.0); HEMATOCRIT 27.1 % (34.2-44.1); HEMOGLOBIN 8.5 g/dL (12.0-16.0); LYMPHOCYTES # (AUTO) 0.4 (1.0-3.2); LYMPHOCYTES % 4.1 % (18.0-39.1); MEAN CORPUSCULAR HEMOGLOBIN 30.6 pg (28-32); MEAN CORPUSCULAR HGB CONC 31.4 g/dL (31-35); MEAN CORPUSCULAR VOLUME 97.5 fL (81-99); MONOCYTES # (AUTO) 0.4 (0.2-0.8); MONOCYTES % 3.9 % (4.4-11.3); NEUTROPHILS # (AUTO) 9.5 (2.1-6.9); NEUTROPHILS % 89.3 % (38.7-80.0); PLATELET COUNT 232 x10e3/uL (140-360); RED BLOOD COUNT 2.78 x10e6/uL (3.6-5.1); RED CELL DISTRIBUTION WIDTH 17.6 % (11.7-14.4)
[2022-05-26] VITALS (54 sets, daily range): BP systolic 76–127; BP diastolic 49–81
[2022-05-26] MEDS: PROPOFOL IV EMULSION 10MG/ML 100 ML IV PRN (00:15)
[2022-05-26] MEDS: METOPROLOL TARTRATE INJ 1 MG/ML VIAL IV PRN (03:40)
[2022-05-26] MEDS: ACETAMINOPHEN 325 MG/10 ML UDC NG PRN (03:43)
[2022-05-26 06:42] LABS: BASOPHILS % 0.8 % (0.0-1.0); EOSINOPHILS # (AUTO) 0.1 (0.0-0.4); HEMOGLOBIN 8.6 g/dL (12.0-16.0); LYMPHOCYTES # (AUTO) 0.3 (1.0-3.2); LYMPHOCYTES % 6.5 % (18.0-39.1); MEAN CORPUSCULAR HEMOGLOBIN 30.2 pg (28-32); MEAN CORPUSCULAR HGB CONC 33.1 g/dL (31-35); MEAN CORPUSCULAR VOLUME 91.2 fL (81-99); MONOCYTES # (AUTO) 0.2 (0.2-0.8); MONOCYTES % 3.2 % (4.4-11.3); NEUTROPHILS # (AUTO) 4.4 (2.1-6.9); NEUTROPHILS % 86.5 % (38.7-80.0); PLATELET COUNT 281 x10e3/uL (140-360); RED BLOOD COUNT 2.85 x10e6/uL (3.6-5.1); RED CELL DISTRIBUTION WIDTH 17.8 % (11.7-14.4)
[2022-05-26 07:12] LABS: ALBUMIN 1.8 g/dL (3.5-5.0); ALBUMIN/GLOBULIN RATIO 0.6 (0.8-2.0); ANION GAP 20.6 mmol/L (8-16); CALCIUM 7.8 mg/dL (8.4-10.2); CREATININE, SERUM 0.59 mg/dL (0.57-1.11); POTASSIUM 3.6 mmol/L (3.5-5.1)
[2022-05-26 08:18] LABS: BAND NEUTROPHILS % (MANUAL) 1 %; LYMPHOCYTES % (MANUAL) 9 % (19-48); MONOCYTES % (MANUAL) 2 % (3.4-9.0); MYELOCYTES % (MANUAL) 4 % (0-0); NEUTROPHILS % (MANUAL) 82 % (40-74)
[2022-05-26 08:19] LABS: PLATELET ESTIMATE ADEQUATE; PLATELET MORPHOLOGY COMMENT FEW LARGE; RBC MORPHOLOGY COMMENT NORMAL
[2022-05-26] MEDS ORDERED: CHOLESTYRAMINE 4 GM PACKET NG SCH (09:00)
[2022-05-26] MEDS ORDERED: ENOXAPARIN SOD INJ 40 MG/0.4 ML SYR SC SCH (09:00)
[2022-05-26 09:41] LABS: ABG HCO3 25 mmol/L (22-26); ABG PCO2 39 mmHg (35-45); ABG PH 7.41 (7.35-7.45); ABG PO2 106 mmHg (80-105); ABG TCO2 26
[2022-05-26] MEDS: EYE LUBRICANT OPTH OINT 3.5GM TUBE OP SCH ×2 (09:55→16:52)
[2022-05-26] MEDS: DIPHENOXYLATE/ATROPINE TAB NG SCH ×3 (09:55→22:17)
[2022-05-26] MEDS: POTASSIUM CHLORIDE 20MEQ/100ML 100 ML IV SCH ×2 (10:15→12:06)
[2022-05-26] MEDS ORDERED: ACETAMINOPHEN 1000 MG/100 ML IV STA (16:38)
[2022-05-26] MEDS ORDERED: SODIUM CHLORIDE 0.45% 1,000 ML IV ONE (16:45)
[2022-05-26] MEDS ORDERED: Vancomycin IV 1 GM in SODIUM CHLORIDE 0.9% 250ML 250 ML IV ONE (17:15)
[2022-05-26] MEDS: FENTANYL 2000MCG/NS 250 250 ML IV PRN (17:45)
[2022-05-26] MEDS: VASOPRESSIN 60 UNIT in DEXTROSE 5% 50ML 57 ML IV PRN (18:00)
[2022-05-26 18:55] LABS: CREATININE,URINE RANDOM 36.51 mg/dL (47-110); TOTAL PROTEIN, URINE 94.3 mg/dL (1-14)
[2022-05-26 18:56] LABS: TOTAL PROTEIN 24HR, URINE 660.1 mg/24hr (50-100)
[2022-05-27] VITALS (84 sets, daily range): BP systolic 41–286; BP diastolic 34–86
[2022-05-27 06:46] LABS: BASOPHILS % 0.3 % (0.0-1.0); EOSINOPHILS % 0.1 % (0.0-6.0); HEMATOCRIT 24.6 % (34.2-44.1); HEMOGLOBIN 7.7 g/dL (12.0-16.0); LYMPHOCYTES # (AUTO) 0.3 (1.0-3.2); LYMPHOCYTES % 2.7 % (18.0-39.1); MEAN CORPUSCULAR HEMOGLOBIN 30.3 pg (28-32); MEAN CORPUSCULAR HGB CONC 31.3 g/dL (31-35); MEAN CORPUSCULAR VOLUME 96.9 fL (81-99); MONOCYTES # (AUTO) 0.3 (0.2-0.8); NEUTROPHILS # (AUTO) 10.2 (2.1-6.9); NEUTROPHILS % 93.2 % (38.7-80.0); PLATELET COUNT 330 x10e3/uL (140-360); RED BLOOD COUNT 2.54 x10e6/uL (3.6-5.1); RED CELL DISTRIBUTION WIDTH 17.2 % (11.7-14.4)
[2022-05-27 07:09] LABS: ALBUMIN 1.6 g/dL (3.5-5.0); ALBUMIN/GLOBULIN RATIO 0.6 (0.8-2.0); ANION GAP 20.9 mmol/L (8-16); CALCIUM 7.4 mg/dL (8.4-10.2); CREATININE, SERUM 0.54 mg/dL (0.57-1.11); POTASSIUM 3.9 mmol/L (3.5-5.1)
[2022-05-27 08:12] LABS: ABG HCO3 21 mmol/L (22-26); ABG PCO2 27 mmHg (35-45); ABG PH 7.49 (7.35-7.45); ABG PO2 148 mmHg (80-105); ABG TCO2 22
[2022-05-27 08:45] LABS: BAND NEUTROPHILS % (MANUAL) 2 %; LYMPHOCYTES % (MANUAL) 1 % (19-48); MONOCYTES % (MANUAL) 1 % (3.4-9.0); NEUTROPHILS % (MANUAL) 96 % (40-74); PLATELET ESTIMATE ADEQUATE; RBC MORPHOLOGY COMMENT NORMAL
[2022-05-27 08:46] LABS: PLATELET MORPHOLOGY COMMENT FEW GIANT
[2022-05-27] MEDS: DIPHENOXYLATE/ATROPINE TAB NG SCH ×3 (09:00→21:13)
[2022-05-27] MEDS: CHOLESTYRAMINE 4 GM PACKET NG SCH ×2 (09:00→17:44)
[2022-05-27] MEDS ORDERED: BUPIVACAINE 0.5%/EPI 30 ML SDV INJ ONE (09:04)
[2022-05-27] MEDS ORDERED: ALBUMIN 25% 25GM 100ML 0.25 GM/ML BTL IV SCH (10:30)
[2022-05-27] MEDS: FUROSEMIDE INJ 10 MG/ML 4 ML VIAL IV SCH ×3 (11:02→22:05)
[2022-05-27] MEDS ORDERED: THIAMINE HCL INJ 100 MG/ML 2ML VIAL IV ONE (12:00)
[2022-05-27] MEDS: ALBUMIN 25% 25GM 100ML 0.25 GM/ML BTL IV SCH ×2 (12:22→18:42)
[2022-05-27] MEDS: EYE LUBRICANT OPTH OINT 3.5GM TUBE OP SCH ×2 (13:19→17:44)
[2022-05-27] MEDS ORDERED: POVIDONE IODINE 0.05% 0.05 % ML PO ONE (13:26)
[2022-05-27] MEDS ORDERED: ROCURONIUM BROMIDE 10 MG/ML 5ML VIAL IV ONE (13:26)
[2022-05-27] MEDS ORDERED: SEVOFLURANE INHAL SOLN 250 ML PEN BTL ONE (13:26)
[2022-05-27] MEDS ORDERED: PHENYLEPHRINE HCL 1% 10 MG/ML VIAL ONE (13:26)
[2022-05-27] MEDS ORDERED: MIDAZOLAM HCL 2 MG/2 ML VIAL ONE (13:31)
[2022-05-27] MEDS ORDERED: FENTANYL CITRATE/PF 100MCG/2 ML INJ ONE (13:31)
[2022-05-27 16:57] LABS: ABG HCO3 22 mmol/L (22-26); ABG PCO2 36 mmHg (35-45); ABG PH 7.39 (7.35-7.45); ABG PO2 200 mmHg (80-105); ABG TCO2 23
[2022-05-28] VITALS (85 sets, daily range): BP systolic 82–125; BP diastolic 47–82
[2022-05-28] MEDS: ALBUMIN 25% 25GM 100ML 0.25 GM/ML BTL IV SCH (00:10)
[2022-05-28 06:47] LABS: BASOPHILS % 0.2 % (0.0-1.0); EOSINOPHILS % 0.3 % (0.0-6.0); HEMATOCRIT 25.3 % (34.2-44.1); HEMOGLOBIN 7.6 g/dL (12.0-16.0); LYMPHOCYTES # (AUTO) 0.3 (1.0-3.2); LYMPHOCYTES % 2.6 % (18.0-39.1); MEAN CORPUSCULAR HEMOGLOBIN 29.9 pg (28-32); MEAN CORPUSCULAR VOLUME 99.6 fL (81-99); MONOCYTES # (AUTO) 0.5 (0.2-0.8); MONOCYTES % 4.1 % (4.4-11.3); NEUTROPHILS % 91.9 % (38.7-80.0); PLATELET COUNT 399 x10e3/uL (140-360); RED BLOOD COUNT 2.54 x10e6/uL (3.6-5.1); RED CELL DISTRIBUTION WIDTH 17.5 % (11.7-14.4)
[2022-05-28 07:09] LABS: ALBUMIN 2.8 g/dL (3.5-5.0); ALBUMIN/GLOBULIN RATIO 1.2 (0.8-2.0); ANION GAP 21.7 mmol/L (8-16); CALCIUM 8.1 mg/dL (8.4-10.2); CREATININE, SERUM 0.61 mg/dL (0.57-1.11); POTASSIUM 3.7 mmol/L (3.5-5.1)
[2022-05-28 07:28] LABS: ANISOCYTOSIS SLIGHT; BAND NEUTROPHILS % (MANUAL) 2 %; LYMPHOCYTES % (MANUAL) 1 % (19-48); MONOCYTES % (MANUAL) 3 % (3.4-9.0); NEUTROPHILS % (MANUAL) 94 % (40-74); PLATELET ESTIMATE ADEQUATE; PLATELET MORPHOLOGY COMMENT NORMAL; RBC MORPHOLOGY COMMENT NORMAL
[2022-05-28 07:29] LABS: POLYCHROMASIA FEW
[2022-05-28] MEDS ORDERED: FENTANYL 2000MCG/NS 250 250 ML IV PRN (07:30)
[2022-05-28 08:56] LABS: ABG HCO3 21 mmol/L (22-26); ABG PCO2 37 mmHg (35-45); ABG PH 7.35 (7.35-7.45); ABG PO2 155 mmHg (80-105); ABG TCO2 22
[2022-05-28] MEDS: EYE LUBRICANT OPTH OINT 3.5GM TUBE OP SCH ×2 (09:00→17:00)
[2022-05-28] MEDS: DIPHENOXYLATE/ATROPINE TAB NG SCH ×3 (09:24→21:05)
[2022-05-28] MEDS: FUROSEMIDE INJ 10 MG/ML 4 ML VIAL IV SCH ×2 (09:24→22:32)
[2022-05-28] MEDS: CHOLESTYRAMINE 4 GM PACKET NG SCH ×2 (09:24→17:31)
[2022-05-28] MEDS: POTASSIUM CHLORIDE 20MEQ/100ML 100 ML IV SCH ×2 (09:25→11:50)
[2022-05-28] MEDS: ACETAMINOPHEN 325 MG/10 ML UDC NG PRN ×2 (14:51→21:15)
[2022-05-28] MEDS ORDERED: SODIUM FERRIC GLUCONATE COMPLX 125 MG in SODIUM CHLORIDE 0.9% 100 ML IV ONE (15:00)
[2022-05-29] VITALS (75 sets, daily range): BP systolic 67–137; BP diastolic 43–86
[2022-05-29] MEDS ORDERED: MAGNESIUM SULFATE 2GM/50ML 50 ML IV ONE (01:00)
[2022-05-29] MEDS: ACETAMINOPHEN 325 MG/10 ML UDC NG PRN (04:14)
[2022-05-29] MEDS ORDERED: SODIUM CHLORIDE 0.9% 250ML 250 ML IV ONE (06:00)
[2022-05-29 06:29] LABS: BASOPHILS % 0.4 % (0.0-1.0); EOSINOPHILS % 0.2 % (0.0-6.0); HEMATOCRIT 24.8 % (34.2-44.1); HEMOGLOBIN 7.1 g/dL (12.0-16.0); LYMPHOCYTES # (AUTO) 0.3 (1.0-3.2); LYMPHOCYTES % 2.6 % (18.0-39.1); MEAN CORPUSCULAR HEMOGLOBIN 29.7 pg (28-32); MEAN CORPUSCULAR HGB CONC 28.6 g/dL (31-35); MONOCYTES # (AUTO) 0.7 (0.2-0.8); MONOCYTES % 6.5 % (4.4-11.3); NEUTROPHILS # (AUTO) 9.2 (2.1-6.9); NEUTROPHILS % 89.2 % (38.7-80.0); PLATELET COUNT 421 x10e3/uL (140-360); RED BLOOD COUNT 2.39 x10e6/uL (3.6-5.1); RED CELL DISTRIBUTION WIDTH 17.7 % (11.7-14.4)
[2022-05-29 06:40] LABS: INR 1.38; PROTHROMBIN TIME 17.2 seconds (11.9-14.5)
[2022-05-29 06:41] LABS: MEAN CORPUSCULAR VOLUME 103.8 fL (81-99); PARTIAL THROMBOPLASTIN TIME 41.3 seconds (23.8-35.5)
[2022-05-29] MEDS ORDERED: SODIUM CHLORIDE 0.9% 1000ML 1,000 ML IV ONE (07:15)
[2022-05-29 08:48] LABS: ALBUMIN 2.2 g/dL (3.5-5.0); ALBUMIN/GLOBULIN RATIO 0.9 (0.8-2.0); ANION GAP 20.6 mmol/L (8-16); CALCIUM 7.7 mg/dL (8.4-10.2); CREATININE, SERUM 0.62 mg/dL (0.57-1.11); POTASSIUM 3.6 mmol/L (3.5-5.1)
[2022-05-29] MEDS: EYE LUBRICANT OPTH OINT 3.5GM TUBE OP SCH ×2 (09:00→16:46)
[2022-05-29] MEDS: FUROSEMIDE INJ 10 MG/ML 4 ML VIAL IV SCH ×2 (09:09→22:19)
[2022-05-29] MEDS: DIPHENOXYLATE/ATROPINE TAB PO SCH ×4 (09:09→20:27)
[2022-05-29] MEDS: CHOLESTYRAMINE 4 GM PACKET NG SCH ×2 (09:09→16:46)
[2022-05-29 10:19] LABS: BAND NEUTROPHILS % (MANUAL) 9 %; LYMPHOCYTES % (MANUAL) 6 % (19-48); MONOCYTES % (MANUAL) 9 % (3.4-9.0); NEUTROPHILS % (MANUAL) 76 % (40-74)
[2022-05-29 10:21] LABS: ANISOCYTOSIS SLIGHT; HYPOCHROMASIA MODERATE; RBC MORPHOLOGY COMMENT NORMAL
[2022-05-29 10:22] LABS: PLATELET ESTIMATE ADEQUATE; PLATELET MORPHOLOGY COMMENT FEW LARGE
[2022-05-29] MEDS ORDERED: SODIUM CHLORIDE 0.9% 250ML 250 ML ONE (12:01)
[2022-05-30] VITALS (86 sets, daily range): BP systolic 81–139; BP diastolic 51–87
[2022-05-30] MEDS: ACETAMINOPHEN 325 MG/10 ML UDC NG PRN (02:54)
[2022-05-30 06:40] LABS: BASOPHILS % 0.3 % (0.0-1.0); EOSINOPHILS # (AUTO) 0.1 (0.0-0.4); EOSINOPHILS % 0.6 % (0.0-6.0); LYMPHOCYTES # (AUTO) 0.4 (1.0-3.2); MEAN CORPUSCULAR HEMOGLOBIN 30.4 pg (28-32); MEAN CORPUSCULAR HGB CONC 30.3 g/dL (31-35); MEAN CORPUSCULAR VOLUME 100.3 fL (81-99); MONOCYTES # (AUTO) 1.1 (0.2-0.8); MONOCYTES % 9.7 % (4.4-11.3); NEUTROPHILS % 82.8 % (38.7-80.0); PLATELET COUNT 375 x10e3/uL (140-360); RED BLOOD COUNT 3.29 x10e6/uL (3.6-5.1); RED CELL DISTRIBUTION WIDTH 16.4 % (11.7-14.4)
[2022-05-30 07:25] LABS: INR 1.19; PROTHROMBIN TIME 15.3 seconds (11.9-14.5)
[2022-05-30 07:26] LABS: PARTIAL THROMBOPLASTIN TIME 36.8 seconds (23.8-35.5)
[2022-05-30 07:35] LABS: ALBUMIN 2.3 g/dL (3.5-5.0); ALBUMIN/GLOBULIN RATIO 0.7 (0.8-2.0); ANION GAP 22.5 mmol/L (8-16); CREATININE, SERUM 0.53 mg/dL (0.57-1.11); POTASSIUM 3.5 mmol/L (3.5-5.1)
[2022-05-30] MEDS: CHOLESTYRAMINE 4 GM PACKET NG SCH ×2 (08:36→16:43)
[2022-05-30] MEDS: DIPHENOXYLATE/ATROPINE TAB PO SCH ×4 (08:36→20:09)
[2022-05-30] MEDS: EYE LUBRICANT OPTH OINT 3.5GM TUBE OP SCH ×2 (08:37→16:43)
[2022-05-30] MEDS ORDERED: POTASSIUM CHLORIDE 20MEQ/100ML 200 ML IV ONE ×2 (09:00→16:00)
[2022-05-30 09:41] LABS: ABG HCO3 20 mmol/L (22-26); ABG PCO2 38 mmHg (35-45); ABG PH 7.32 (7.35-7.45); ABG PO2 159 mmHg (80-105); ABG TCO2 21
[2022-05-30] MEDS: FUROSEMIDE INJ 10 MG/ML 4 ML VIAL IV SCH (09:44)
[2022-05-30] MEDS: ALBUMIN 25% 25GM 100ML 0.25 GM/ML BTL IV SCH ×2 (09:45→16:42)
[2022-05-30 10:52] LABS: LYMPHOCYTES % (MANUAL) 5 % (19-48); MONOCYTES % (MANUAL) 10 % (3.4-9.0); NEUTROPHILS % (MANUAL) 85 % (40-74); PLATELET ESTIMATE ADEQUATE; PLATELET MORPHOLOGY COMMENT NORMAL; RBC MORPHOLOGY COMMENT NORMAL
[2022-05-30] MEDS ORDERED: METOLAZONE 5 MG TAB NG ONE (16:30)
[2022-05-30] MEDS: FUROSEMIDE INJ 100 MG in SODIUM CHLORIDE 0.9% 90 ML IV SCH (17:10)
[2022-05-31] VITALS (40 sets, daily range): BP systolic 87–148; BP diastolic 50–93
[2022-05-31] MEDS: ACETAMINOPHEN 325 MG/10 ML UDC NG PRN ×2 (03:07→20:33)
[2022-05-31] MEDS: METOCLOPRAMIDE HCL 10 MG/2ML VIAL IV SCH ×3 (05:23→18:06)
[2022-05-31 06:58] LABS: BASOPHILS # (AUTO) 0.1 (0.0-0.1); BASOPHILS % 0.6 % (0.0-1.0); EOSINOPHILS # (AUTO) 0.1 (0.0-0.4); EOSINOPHILS % 0.7 % (0.0-6.0); HEMATOCRIT 33.2 % (34.2-44.1); HEMOGLOBIN 9.8 g/dL (12.0-16.0); LYMPHOCYTES # (AUTO) 0.4 (1.0-3.2); LYMPHOCYTES % 3.9 % (18.0-39.1); MEAN CORPUSCULAR HGB CONC 29.5 g/dL (31-35); MEAN CORPUSCULAR VOLUME 101.5 fL (81-99); MONOCYTES # (AUTO) 1.1 (0.2-0.8); MONOCYTES % 10.4 % (4.4-11.3); NEUTROPHILS # (AUTO) 8.3 (2.1-6.9); NEUTROPHILS % 77.3 % (38.7-80.0); PLATELET COUNT 413 x10e3/uL (140-360); RED BLOOD COUNT 3.27 x10e6/uL (3.6-5.1)
[2022-05-31 07:09] LABS: ALBUMIN 2.8 g/dL (3.5-5.0); ALBUMIN/GLOBULIN RATIO 1.2 (0.8-2.0); ANION GAP 22.7 mmol/L (8-16); CALCIUM 8.3 mg/dL (8.4-10.2); CREATININE, SERUM 0.54 mg/dL (0.57-1.11); POTASSIUM 3.7 mmol/L (3.5-5.1)
[2022-05-31] MEDS: FUROSEMIDE INJ 100 MG in SODIUM CHLORIDE 0.9% 90 ML IV SCH ×2 (07:25→17:11)
[2022-05-31 07:54] LABS: LYMPHOCYTES % (MANUAL) 14 % (19-48); NEUTROPHILS % (MANUAL) 86 % (40-74); PLATELET ESTIMATE ADEQUATE; PLATELET MORPHOLOGY COMMENT NORMAL; RBC MORPHOLOGY COMMENT NORMAL
[2022-05-31] MEDS: EYE LUBRICANT OPTH OINT 3.5GM TUBE OP SCH ×2 (09:58→17:12)
[2022-05-31] MEDS: DIPHENOXYLATE/ATROPINE TAB PO SCH ×4 (09:58→20:32)
[2022-05-31] MEDS: CHOLESTYRAMINE 4 GM PACKET NG SCH ×3 (09:58→18:06)
[2022-05-31] MEDS: POTASSIUM CHLORIDE 20MEQ/100ML 100 ML IV SCH ×2 (10:17→12:16)
[2022-06-01] VITALS (48 sets, daily range): BP systolic 82–128; BP diastolic 51–83
[2022-06-01] MEDS: METOCLOPRAMIDE HCL 10 MG/2ML VIAL IV SCH ×5 (00:05→23:50)
[2022-06-01] MEDS: FUROSEMIDE INJ 100 MG in SODIUM CHLORIDE 0.9% 90 ML IV SCH ×2 (02:56→16:10)
[2022-06-01 06:54] LABS: BASOPHILS # (AUTO) 0.2 (0.0-0.1); BASOPHILS % 0.9 % (0.0-1.0); EOSINOPHILS # (AUTO) 0.1 (0.0-0.4); EOSINOPHILS % 0.5 % (0.0-6.0); HEMATOCRIT 37.6 % (34.2-44.1); HEMOGLOBIN 11.4 g/dL (12.0-16.0); LYMPHOCYTES # (AUTO) 0.6 (1.0-3.2); LYMPHOCYTES % 3.6 % (18.0-39.1); MEAN CORPUSCULAR HEMOGLOBIN 30.2 pg (28-32); MEAN CORPUSCULAR HGB CONC 30.3 g/dL (31-35); MEAN CORPUSCULAR VOLUME 99.7 fL (81-99); MONOCYTES % 6.2 % (4.4-11.3); NEUTROPHILS # (AUTO) 13.3 (2.1-6.9); NEUTROPHILS % 80.7 % (38.7-80.0); PLATELET COUNT 488 x10e3/uL (140-360); RED BLOOD COUNT 3.77 x10e6/uL (3.6-5.1); RED CELL DISTRIBUTION WIDTH 15.6 % (11.7-14.4)
[2022-06-01 07:20] LABS: ALBUMIN 2.7 g/dL (3.5-5.0); ALBUMIN/GLOBULIN RATIO 0.9 (0.8-2.0); ANION GAP 22.5 mmol/L (8-16); CALCIUM 8.4 mg/dL (8.4-10.2); CREATININE, SERUM 0.52 mg/dL (0.57-1.11)
[2022-06-01 07:22] LABS: POTASSIUM 2.5 mmol/L (3.5-5.1)
[2022-06-01 07:34] LABS: MAGNESIUM 1.8 MG/DL (1.3-2.1); PHOSPHORUS 3.5 MG/DL (2.3-4.7)
[2022-06-01] MEDS: DIPHENOXYLATE/ATROPINE TAB PO SCH ×4 (07:50→20:49)
[2022-06-01] MEDS ORDERED: POTASSIUM CHLORIDE 20MEQ/100ML 200 ML IV ONE ×2 (08:00→17:00)
[2022-06-01 08:30] LABS: BAND NEUTROPHILS % (MANUAL) 6 %; EOSINOPHILS % (MANUAL) 2 % (0-7); LYMPHOCYTES % (MANUAL) 1 % (19-48); METAMYELOCYTES % (MANUAL) 1 % (0-0); MONOCYTES % (MANUAL) 2 % (3.4-9.0); MYELOCYTES % (MANUAL) 1 % (0-0); NEUTROPHILS % (MANUAL) 86 % (40-74); PLATELET ESTIMATE ADEQUATE; PLATELET MORPHOLOGY COMMENT NORMAL; RBC MORPHOLOGY COMMENT NORMAL
[2022-06-01] MEDS: CHOLESTYRAMINE 4 GM PACKET NG SCH (09:27)
[2022-06-01] MEDS: EYE LUBRICANT OPTH OINT 3.5GM TUBE OP SCH ×2 (09:27→17:46)
[2022-06-01] MEDS: ALBUMIN 25% 25GM 100ML 0.25 GM/ML BTL IV SCH ×3 (09:35→17:46)
[2022-06-01] MEDS ORDERED: KETOROLAC TROMETHAMINE 30 MG/ML VIAL IV ONE (12:15)
[2022-06-01] MEDS: ACETAMINOPHEN 325 MG/10 ML UDC NG PRN (12:31)
[2022-06-01 16:31] LABS: CALCIUM 8.6 mg/dL (8.4-10.2); CREATININE, SERUM 0.54 mg/dL (0.57-1.11)
[2022-06-01] MEDS ORDERED: ENOXAPARIN SOD INJ 40 MG/0.4 ML SYR SC SCH (17:00)
[2022-06-01] MEDS: FENTANYL 2000MCG/NS 250 250 ML IV SCH (18:32)
[2022-06-02] VITALS (72 sets, daily range): BP systolic 79–135; BP diastolic 51–88
[2022-06-02] MEDS: FUROSEMIDE INJ 100 MG in SODIUM CHLORIDE 0.9% 90 ML IV SCH (01:01)
[2022-06-02] MEDS: METOCLOPRAMIDE HCL 10 MG/2ML VIAL IV SCH ×3 (05:53→17:04)
[2022-06-02 07:47] LABS: ABG HCO3 34 mmol/L (22-26); ABG PCO2 48 mmHg (35-45); ABG PH 7.45 (7.35-7.45); ABG PO2 155 mmHg (80-105); ABG TCO2 35
[2022-06-02 08:28] LABS: BASOPHILS # (AUTO) 0.2 (0.0-0.1); BASOPHILS % 0.9 % (0.0-1.0); EOSINOPHILS # (AUTO) 0.2 (0.0-0.4); EOSINOPHILS % 1.1 % (0.0-6.0); HEMATOCRIT 33.1 % (34.2-44.1); LYMPHOCYTES # (AUTO) 0.7 (1.0-3.2); LYMPHOCYTES % 3.9 % (18.0-39.1); MEAN CORPUSCULAR HEMOGLOBIN 30.3 pg (28-32); MEAN CORPUSCULAR HGB CONC 30.2 g/dL (31-35); MEAN CORPUSCULAR VOLUME 100.3 fL (81-99); MONOCYTES # (AUTO) 0.9 (0.2-0.8); MONOCYTES % 5.3 % (4.4-11.3); NEUTROPHILS # (AUTO) 13.9 (2.1-6.9); NEUTROPHILS % 79.5 % (38.7-80.0); PLATELET COUNT 411 x10e3/uL (140-360); RED CELL DISTRIBUTION WIDTH 15.4 % (11.7-14.4)
[2022-06-02] MEDS ORDERED: ONDANSETRON HCL 4 MG ORAL DISINTEGRATING TAB SL PRN (09:00)
[2022-06-02] MEDS ORDERED: POTASSIUM CHLORIDE 20MEQ/100ML 200 ML IV ONE (09:00)
[2022-06-02] MEDS: FUROSEMIDE INJ 10 MG/ML 4 ML VIAL IV SCH ×2 (09:01→22:03)
[2022-06-02] MEDS: CHOLESTYRAMINE 4 GM PACKET NG SCH ×2 (09:02→17:04)
[2022-06-02] MEDS: DIPHENOXYLATE/ATROPINE TAB PO SCH ×4 (09:02→20:21)
[2022-06-02 09:04] LABS: ALBUMIN 3.3 g/dL (3.5-5.0); ALBUMIN/GLOBULIN RATIO 1.4 (0.8-2.0); ANION GAP 22.4 mmol/L (8-16); CALCIUM 8.6 mg/dL (8.4-10.2); CREATININE, SERUM 0.52 mg/dL (0.57-1.11); POTASSIUM 3.4 mmol/L (3.5-5.1)
[2022-06-02 10:46] LABS: BAND NEUTROPHILS % (MANUAL) 1 %; EOSINOPHILS % (MANUAL) 2 % (0-7); HYPOCHROMASIA SLIGHT; LYMPHOCYTES % (MANUAL) 4 % (19-48); METAMYELOCYTES % (MANUAL) 2 % (0-0); MONOCYTES % (MANUAL) 6 % (3.4-9.0); MYELOCYTES % (MANUAL) 5 % (0-0); NEUTROPHILS % (MANUAL) 80 % (40-74); PLATELET ESTIMATE ADEQUATE; PLATELET MORPHOLOGY COMMENT NORMAL; RBC MORPHOLOGY COMMENT ABNORMAL
[2022-06-02 15:09] LABS: APPEARANCE,CSF CLEAR (CLEAR); COLOR,CSF COLORLESS (COLORLESS); TUBE NUMBER 4; WHITE BLOOD CELL,CSF 1 cells/uL (0-5)
[2022-06-03] VITALS (96 sets, daily range): BP systolic 36–137; BP diastolic 19–80
[2022-06-03] MEDS: METOCLOPRAMIDE HCL 10 MG/2ML VIAL IV SCH ×4 (00:20→17:36)
[2022-06-03 06:44] LABS: BASOPHILS # (AUTO) 0.2 (0.0-0.1); BASOPHILS % 0.9 % (0.0-1.0); EOSINOPHILS # (AUTO) 0.2 (0.0-0.4); HEMATOCRIT 31.2 % (34.2-44.1); HEMOGLOBIN 9.3 g/dL (12.0-16.0); LYMPHOCYTES # (AUTO) 0.8 (1.0-3.2); LYMPHOCYTES % 3.8 % (18.0-39.1); MEAN CORPUSCULAR HEMOGLOBIN 30.2 pg (28-32); MEAN CORPUSCULAR HGB CONC 29.8 g/dL (31-35); MEAN CORPUSCULAR VOLUME 101.3 fL (81-99); MONOCYTES # (AUTO) 1.1 (0.2-0.8); MONOCYTES % 5.5 % (4.4-11.3); NEUTROPHILS # (AUTO) 16.2 (2.1-6.9); NEUTROPHILS % 80.9 % (38.7-80.0); PLATELET COUNT 436 x10e3/uL (140-360); RED BLOOD COUNT 3.08 x10e6/uL (3.6-5.1); RED CELL DISTRIBUTION WIDTH 15.4 % (11.7-14.4)
[2022-06-03 07:12] LABS: ALBUMIN 2.8 g/dL (3.5-5.0); ANION GAP 21.1 mmol/L (8-16); CALCIUM 8.4 mg/dL (8.4-10.2); CREATININE, SERUM 0.48 mg/dL (0.57-1.11); POTASSIUM 4.1 mmol/L (3.5-5.1)
[2022-06-03 08:42] LABS: BAND NEUTROPHILS % (MANUAL) 1 %; LYMPHOCYTES % (MANUAL) 9 % (19-48); MONOCYTES % (MANUAL) 3 % (3.4-9.0); NEUTROPHILS % (MANUAL) 87 % (40-74); PLATELET ESTIMATE ADEQUATE
[2022-06-03 08:43] LABS: PLATELET MORPHOLOGY COMMENT NORMAL; RBC MORPHOLOGY COMMENT NORMAL
[2022-06-03] MEDS: CHOLESTYRAMINE 4 GM PACKET NG SCH ×3 (09:03→17:37)
[2022-06-03] MEDS: DIPHENOXYLATE/ATROPINE TAB PO SCH ×5 (09:03→20:42)
[2022-06-03] MEDS: FUROSEMIDE INJ 10 MG/ML 4 ML VIAL IV SCH (09:03)
[2022-06-03] MEDS: METOPROLOL TARTRATE INJ 1 MG/ML VIAL IV PRN (10:10)
[2022-06-03] MEDS ORDERED: SODIUM CHLORIDE 0.9% 250ML 250 ML IV ONE ×4 (11:15→23:00)
[2022-06-03] MEDS ORDERED: SODIUM CHLORIDE 0.9% 1000ML 1,000 ML ONE (11:23)
[2022-06-03 12:19] LABS: BASOPHILS # (AUTO) 0.1 (0.0-0.1); BASOPHILS % 0.2 % (0.0-1.0); EOSINOPHILS # (AUTO) 0.2 (0.0-0.4); EOSINOPHILS % 0.7 % (0.0-6.0); LYMPHOCYTES # (AUTO) 1.2 (1.0-3.2); LYMPHOCYTES % 4.2 % (18.0-39.1); MEAN CORPUSCULAR HEMOGLOBIN 29.9 pg (28-32); MEAN CORPUSCULAR HGB CONC 28.5 g/dL (31-35); MEAN CORPUSCULAR VOLUME 105.1 fL (81-99); MONOCYTES # (AUTO) 1.3 (0.2-0.8); MONOCYTES % 4.3 % (4.4-11.3); NEUTROPHILS # (AUTO) 24.4 (2.1-6.9); NEUTROPHILS % 81.9 % (38.7-80.0); PLATELET COUNT 387 x10e3/uL (140-360); RED BLOOD COUNT 1.57 x10e6/uL (3.6-5.1); RED CELL DISTRIBUTION WIDTH 15.4 % (11.7-14.4)
[2022-06-03 12:24] LABS: HEMATOCRIT 16.5 % (34.2-44.1); HEMOGLOBIN 4.7 g/dL (12.0-16.0)
[2022-06-03] MEDS ORDERED: LACTATED RINGER'S 1,000 ML ONE (12:51)
[2022-06-03 13:07] LABS: BAND NEUTROPHILS % (MANUAL) 2 %; EOSINOPHILS % (MANUAL) 2 % (0-7); LYMPHOCYTES % (MANUAL) 3 % (19-48); MONOCYTES % (MANUAL) 4 % (3.4-9.0); MYELOCYTES % (MANUAL) 1 % (0-0); NEUTROPHILS % (MANUAL) 88 % (40-74); PLATELET ESTIMATE ADEQUATE; PLATELET MORPHOLOGY COMMENT NORMAL; RBC MORPHOLOGY COMMENT NORMAL
[2022-06-03 13:57] LABS: INR 1.93; PROTHROMBIN TIME 22.2 seconds (11.9-14.5)
[2022-06-03] MEDS ORDERED: OCTREOTIDE ACETATE 500 MCG in SODIUM CHLORIDE 0.9% 250ML 249 ML IV SCH (16:15)
[2022-06-03 16:16] LABS: BASOPHILS # (AUTO) 0.1 (0.0-0.1); BASOPHILS % 0.2 % (0.0-1.0); HEMATOCRIT 28.5 % (34.2-44.1); HEMOGLOBIN 9.2 g/dL (12.0-16.0); LYMPHOCYTES # (AUTO) 1.3 (1.0-3.2); LYMPHOCYTES % 2.9 % (18.0-39.1); MEAN CORPUSCULAR HEMOGLOBIN 30.7 pg (28-32); MEAN CORPUSCULAR HGB CONC 32.3 g/dL (31-35); MONOCYTES # (AUTO) 1.5 (0.2-0.8); MONOCYTES % 3.3 % (4.4-11.3); NEUTROPHILS # (AUTO) 34.7 (2.1-6.9); NEUTROPHILS % 79.9 % (38.7-80.0); PLATELET COUNT 229 x10e3/uL (140-360); RED CELL DISTRIBUTION WIDTH 14.3 % (11.7-14.4)
[2022-06-03] MEDS ORDERED: DESMOPRESSIN ACETATE 4 MCG/ML VIAL IV ONE (17:15)
[2022-06-03] MEDS ORDERED: PHYTONADIONE 10 MG/ML AMP IV ONE (17:15)
[2022-06-03] MEDS: VANCOMYCIN 250MG/5ML ORAL SOLN GT SCH ×2 (17:36→18:00)
[2022-06-03] MEDS: OCTREOTIDE ACETATE 500 MCG in SODIUM CHLORIDE 0.9% 250ML 250 ML IV SCH (17:40)
[2022-06-03] MEDS ORDERED: SODIUM CHLORIDE 0.9% 250ML 500 ML ONE (19:43)
[2022-06-03] MEDS: VASOPRESSIN 60 UNIT in DEXTROSE 5% 50ML 57 ML IV PRN (20:41)
[2022-06-03] MEDS: METRONIDAZOLE 500MG/NS 100ML 100 ML IV SCH (21:03)
[2022-06-03] MEDS ORDERED: LACTATED RINGER'S 1,000 ML INJ ONE (22:30)
[2022-06-03] MEDS ORDERED: NOREPINEPHRINE 8 MG/D5W 250 ML 250 ML IV PRN (22:30)
[2022-06-03 22:48] LABS: BASOPHILS # (AUTO) 0.1 (0.0-0.1); BASOPHILS % 0.2 % (0.0-1.0); LYMPHOCYTES # (AUTO) 1.3 (1.0-3.2); MEAN CORPUSCULAR HEMOGLOBIN 30.3 pg (28-32); MEAN CORPUSCULAR HGB CONC 32.1 g/dL (31-35); MEAN CORPUSCULAR VOLUME 94.5 fL (81-99); MONOCYTES # (AUTO) 1.2 (0.2-0.8); MONOCYTES % 3.6 % (4.4-11.3); NEUTROPHILS # (AUTO) 26.4 (2.1-6.9); NEUTROPHILS % 80.7 % (38.7-80.0); PLATELET COUNT 139 x10e3/uL (140-360); RED BLOOD COUNT 2.01 x10e6/uL (3.6-5.1); RED CELL DISTRIBUTION WIDTH 13.5 % (11.7-14.4)
[2022-06-03 22:50] LABS: HEMOGLOBIN 6.1 g/dL (12.0-16.0)
[2022-06-04] VITALS (93 sets, daily range): BP systolic 48–160; BP diastolic 20–88
[2022-06-04 00:03] LABS: INR 1.47
[2022-06-04] MEDS: METOCLOPRAMIDE HCL 10 MG/2ML VIAL IV SCH ×4 (00:19→18:00)
[2022-06-04] MEDS: OCTREOTIDE ACETATE 500 MCG in SODIUM CHLORIDE 0.9% 250ML 250 ML IV SCH ×3 (02:18→21:43)
[2022-06-04] MEDS ORDERED: HYDROCORTISONE SOD SUCCINATE 100 MG VIAL IV ONE ×2 (03:30→09:45)
[2022-06-04] MEDS ORDERED: SODIUM CHLORIDE 0.9% 250ML 250 ML ONE ×4 (03:44→15:37)
[2022-06-04] MEDS: VANCOMYCIN 250MG/5ML ORAL SOLN GT SCH ×4 (03:58→18:00)
[2022-06-04] MEDS: METRONIDAZOLE 500MG/NS 100ML 100 ML IV SCH ×3 (05:40→21:43)
[2022-06-04 07:39] LABS: ALBUMIN 2.3 g/dL (3.5-5.0); ALBUMIN/GLOBULIN RATIO 1.4 (0.8-2.0); ANION GAP 28.5 mmol/L (8-16); CALCIUM 7.5 mg/dL (8.4-10.2); CREATININE, SERUM 0.68 mg/dL (0.57-1.11); POTASSIUM 5.5 mmol/L (3.5-5.1)
[2022-06-04 08:36] LABS: INR 1.65; PROTHROMBIN TIME 19.7 seconds (11.9-14.5)
[2022-06-04] MEDS: DIPHENOXYLATE/ATROPINE TAB PO SCH ×4 (08:59→20:36)
[2022-06-04] MEDS: CHOLESTYRAMINE 4 GM PACKET NG SCH ×2 (08:59→17:00)
[2022-06-04] MEDS ORDERED: ALBUMIN 25% 25GM 100ML 0.25 GM/ML BTL IV ONE (09:00)
[2022-06-04 09:06] LABS: EOSINOPHILS % 0.1 % (0.0-6.0); LYMPHOCYTES # (AUTO) 1.5 (1.0-3.2); LYMPHOCYTES % 5.5 % (18.0-39.1); MEAN CORPUSCULAR HEMOGLOBIN 29.5 pg (28-32); MEAN CORPUSCULAR HGB CONC 29.5 g/dL (31-35); MONOCYTES # (AUTO) 0.8 (0.2-0.8); MONOCYTES % 3.1 % (4.4-11.3); NEUTROPHILS # (AUTO) 20.5 (2.1-6.9); NEUTROPHILS % 78.1 % (38.7-80.0); PLATELET COUNT 94 x10e3/uL (140-360); RED BLOOD COUNT 0.78 x10e6/uL (3.6-5.1); RED CELL DISTRIBUTION WIDTH 14.3 % (11.7-14.4)
[2022-06-04 09:14] LABS: HEMATOCRIT 7.8 % (34.2-44.1); HEMOGLOBIN 2.3 g/dL (12.0-16.0)
[2022-06-04 09:25] LABS: LYMPHOCYTES % (MANUAL) 5 % (19-48); METAMYELOCYTES % (MANUAL) 4 % (0-0); MONOCYTES % (MANUAL) 2 % (3.4-9.0); MYELOCYTES % (MANUAL) 3 % (0-0); NEUTROPHILS % (MANUAL) 86 % (40-74); PLATELET ESTIMATE MODERATELY DECREASED; PLATELET MORPHOLOGY COMMENT NORMAL; RBC MORPHOLOGY COMMENT NORMAL
[2022-06-04] MEDS ORDERED: SODIUM BICARBONATE 8.4% INJ 50 ML SYR IV ONE (09:30)
[2022-06-04] MEDS ORDERED: DIPHENHYDRAMINE HCL INJ 50 MG/ML VIAL ONE (09:48)
[2022-06-04] MEDS ORDERED: SODIUM CHLORIDE 0.9% 250ML 250 ML IV ONE (10:00)
[2022-06-04] MEDS ORDERED: HYDROCORTISONE SOD SUCCINATE IV ONE (10:00)
[2022-06-04 10:26] LABS: BASOPHILS # (AUTO) 0.1 (0.0-0.1); BASOPHILS % 0.2 % (0.0-1.0); LYMPHOCYTES # (AUTO) 0.8 (1.0-3.2); LYMPHOCYTES % 3.2 % (18.0-39.1); MEAN CORPUSCULAR HEMOGLOBIN 28.8 pg (28-32); MEAN CORPUSCULAR HGB CONC 31.1 g/dL (31-35); MEAN CORPUSCULAR VOLUME 92.8 fL (81-99); MONOCYTES # (AUTO) 0.9 (0.2-0.8); MONOCYTES % 3.3 % (4.4-11.3); NEUTROPHILS # (AUTO) 19.4 (2.1-6.9); NEUTROPHILS % 74.7 % (38.7-80.0); RED BLOOD COUNT 2.08 x10e6/uL (3.6-5.1); RED CELL DISTRIBUTION WIDTH 13.2 % (11.7-14.4)
[2022-06-04 10:44] LABS: HEMATOCRIT 19.3 % (34.2-44.1)
[2022-06-04 10:46] LABS: PLATELET COUNT 57 x10e3/uL (140-360)
[2022-06-04] MEDS ORDERED: IOPAMIDOL 370 MG/ML 100 ML INFUS..BTL INJ ONE (11:46)
[2022-06-04] MEDS ORDERED: SODIUM CHLORIDE 0.9% 100 ML ONE (11:46)
[2022-06-04] MEDS ORDERED: PROPOFOL IV EMULSION 10 MG/ML 20 ML VIAL ONE (12:01)
[2022-06-04] MEDS ORDERED: POVIDONE IODINE 0.05% 0.05 % ML PO ONE (12:01)
[2022-06-04] MEDS ORDERED: KETAMINE HCL INJ 50 MG/ML 10 ML VIAL ONE (12:50)
[2022-06-04] MEDS: VASOPRESSIN 60 UNIT in DEXTROSE 5% 50ML 57 ML IV PRN (13:07)
[2022-06-04] MEDS ORDERED: DESMOPRESSIN ACETATE 4 MCG/ML VIAL IV STA (13:26)
[2022-06-04] MEDS ORDERED: PHYTONADIONE 10 MG/ML AMP IV ONE (13:30)
[2022-06-04 14:45] LABS: HEMATOCRIT 16.3 % (34.2-44.1)
[2022-06-04] MEDS ORDERED: DIPHENHYDRAMINE HCL INJ 50 MG/ML VIAL IV ONE ×2 (15:00→16:00)
[2022-06-04] MEDS ORDERED: EPINEPHRINE HCL 1:1000 1ML 1 MG/ML AMP ONE (15:47)
[2022-06-04] MEDS ORDERED: LACTATED RINGER'S 1,000 ML ONE (16:10)
[2022-06-04] MEDS ORDERED: GLUCAGON FOR INJ 1 MG VIAL ONE (16:49)
[2022-06-04 18:11] LABS: BASOPHILS # (AUTO) 0.2 (0.0-0.1); BASOPHILS % 0.7 % (0.0-1.0); HEMATOCRIT 27.7 % (34.2-44.1); HEMOGLOBIN 8.9 g/dL (12.0-16.0); LYMPHOCYTES # (AUTO) 1.1 (1.0-3.2); LYMPHOCYTES % 4.3 % (18.0-39.1); MEAN CORPUSCULAR HEMOGLOBIN 29.6 pg (28-32); MEAN CORPUSCULAR HGB CONC 32.1 g/dL (31-35); MONOCYTES # (AUTO) 1.2 (0.2-0.8); MONOCYTES % 4.7 % (4.4-11.3); NEUTROPHILS # (AUTO) 20.6 (2.1-6.9); NEUTROPHILS % 79.6 % (38.7-80.0); PLATELET COUNT 161 x10e3/uL (140-360); RED BLOOD COUNT 3.01 x10e6/uL (3.6-5.1); RED CELL DISTRIBUTION WIDTH 13.2 % (11.7-14.4)
[2022-06-05] VITALS (51 sets, daily range): BP systolic 91–129; BP diastolic 50–85
[2022-06-05] MEDS: METOCLOPRAMIDE HCL 10 MG/2ML VIAL IV SCH ×4 (00:57→17:44)
[2022-06-05] MEDS: METRONIDAZOLE 500MG/NS 100ML 100 ML IV SCH ×3 (06:13→21:24)
[2022-06-05] MEDS: VANCOMYCIN 250MG/5ML ORAL SOLN GT SCH ×4 (06:13→17:44)
[2022-06-05 06:49] LABS: BASOPHILS # (AUTO) 0.1 (0.0-0.1); BASOPHILS % 0.2 % (0.0-1.0); HEMOGLOBIN 6.2 g/dL (12.0-16.0); LYMPHOCYTES # (AUTO) 0.8 (1.0-3.2); LYMPHOCYTES % 3.2 % (18.0-39.1); MEAN CORPUSCULAR HEMOGLOBIN 29.5 pg (28-32); MEAN CORPUSCULAR HGB CONC 31.8 g/dL (31-35); MEAN CORPUSCULAR VOLUME 92.9 fL (81-99); MONOCYTES # (AUTO) 1.2 (0.2-0.8); MONOCYTES % 5.1 % (4.4-11.3); NEUTROPHILS % 85.8 % (38.7-80.0); PLATELET COUNT 116 x10e3/uL (140-360); RED CELL DISTRIBUTION WIDTH 13.1 % (11.7-14.4)
[2022-06-05 06:57] LABS: HEMATOCRIT 19.5 % (34.2-44.1)
[2022-06-05 07:00] LABS: INR 1.43; PROTHROMBIN TIME 17.6 seconds (11.9-14.5)
[2022-06-05 07:01] LABS: PARTIAL THROMBOPLASTIN TIME 32.6 seconds (23.8-35.5)
[2022-06-05 07:07] LABS: ALBUMIN 2.6 g/dL (3.5-5.0); ALBUMIN/GLOBULIN RATIO 1.4 (0.8-2.0); ANION GAP 21.6 mmol/L (8-16); CALCIUM 7.7 mg/dL (8.4-10.2); CREATININE, SERUM 0.64 mg/dL (0.57-1.11); POTASSIUM 3.6 mmol/L (3.5-5.1)
[2022-06-05] MEDS ORDERED: SODIUM CHLORIDE 0.9% 250ML 250 ML IV ONE (07:30)
[2022-06-05] MEDS: CHOLESTYRAMINE 4 GM PACKET NG SCH ×2 (08:28→17:44)
[2022-06-05] MEDS: OCTREOTIDE ACETATE 500 MCG in SODIUM CHLORIDE 0.9% 250ML 250 ML IV SCH ×2 (10:30→21:24)
[2022-06-05] MEDS: FENTANYL 2000MCG/NS 250 250 ML IV SCH (10:50)
[2022-06-05 11:59] LABS: BAND NEUTROPHILS % (MANUAL) 6 %; LYMPHOCYTES % (MANUAL) 1 % (19-48); METAMYELOCYTES % (MANUAL) 5 % (0-0); MONOCYTES % (MANUAL) 3 % (3.4-9.0); NEUTROPHILS % (MANUAL) 85 % (40-74)
[2022-06-05 12:00] LABS: ANISOCYTOSIS SLIGHT; PLATELET ESTIMATE ADEQUATE; PLATELET MORPHOLOGY COMMENT NORMAL; RBC MORPHOLOGY COMMENT NORMAL
[2022-06-05] MEDS ORDERED: SODIUM CHLORIDE 0.9% 250ML 250 ML ONE (14:12)
[2022-06-05] MEDS ORDERED: SODIUM CHLORIDE 0.9% 1000ML 0 ML ONE (15:12)
[2022-06-05 17:20] LABS: BASOPHILS % 0.2 % (0.0-1.0); HEMATOCRIT 27.7 % (34.2-44.1); HEMOGLOBIN 9.1 g/dL (12.0-16.0); LYMPHOCYTES # (AUTO) 0.5 (1.0-3.2); LYMPHOCYTES % 2.6 % (18.0-39.1); MEAN CORPUSCULAR HEMOGLOBIN 30.4 pg (28-32); MEAN CORPUSCULAR HGB CONC 32.9 g/dL (31-35); MEAN CORPUSCULAR VOLUME 92.6 fL (81-99); NEUTROPHILS # (AUTO) 15.1 (2.1-6.9); NEUTROPHILS % 86.6 % (38.7-80.0); PLATELET COUNT 89 x10e3/uL (140-360); RED BLOOD COUNT 2.99 x10e6/uL (3.6-5.1); RED CELL DISTRIBUTION WIDTH 13.1 % (11.7-14.4)
[2022-06-05 18:14] LABS: BAND NEUTROPHILS % (MANUAL) 2 %; LYMPHOCYTES % (MANUAL) 2 % (19-48); MONOCYTES % (MANUAL) 2 % (3.4-9.0); NEUTROPHILS % (MANUAL) 94 % (40-74)
[2022-06-05 18:15] LABS: PLATELET ESTIMATE SLIGHTLY DECREASED; PLATELET MORPHOLOGY COMMENT NORMAL; RBC MORPHOLOGY COMMENT NORMAL
[2022-06-05] MEDS ORDERED: DEXMEDETOMIDINE 400MCG/NS100ML 100 ML IV PRN (19:30)
[2022-06-06] VITALS (23 sets, daily range): BP systolic 109–150; BP diastolic 66–108
[2022-06-06] MEDS: VANCOMYCIN 250MG/5ML ORAL SOLN GT SCH ×4 (00:32→17:36)
[2022-06-06] MEDS: METOCLOPRAMIDE HCL 10 MG/2ML VIAL IV SCH ×4 (00:32→17:36)
[2022-06-06] MEDS: METRONIDAZOLE 500MG/NS 100ML 100 ML IV SCH ×3 (05:17→21:22)
[2022-06-06 06:56] LABS: BASOPHILS # (AUTO) 0.1 (0.0-0.1); BASOPHILS % 0.7 % (0.0-1.0); HEMATOCRIT 28.7 % (34.2-44.1); HEMOGLOBIN 9.9 g/dL (12.0-16.0); LYMPHOCYTES # (AUTO) 0.4 (1.0-3.2); MEAN CORPUSCULAR HEMOGLOBIN 30.6 pg (28-32); MEAN CORPUSCULAR HGB CONC 34.5 g/dL (31-35); MEAN CORPUSCULAR VOLUME 88.6 fL (81-99); MONOCYTES # (AUTO) 0.9 (0.2-0.8); MONOCYTES % 4.4 % (4.4-11.3); NEUTROPHILS % 89.3 % (38.7-80.0); PLATELET COUNT 107 x10e3/uL (140-360); RED BLOOD COUNT 3.24 x10e6/uL (3.6-5.1); RED CELL DISTRIBUTION WIDTH 13.6 % (11.7-14.4)
[2022-06-06 07:23] LABS: ALBUMIN 2.4 g/dL (3.5-5.0); ANION GAP 16.1 mmol/L (8-16); CALCIUM 7.8 mg/dL (8.4-10.2); CREATININE, SERUM 0.52 mg/dL (0.57-1.11); POTASSIUM 3.1 mmol/L (3.5-5.1)
[2022-06-06 07:53] LABS: BAND NEUTROPHILS % (MANUAL) 6 %; LYMPHOCYTES % (MANUAL) 1 % (19-48); MONOCYTES % (MANUAL) 3 % (3.4-9.0); NEUTROPHILS % (MANUAL) 90 % (40-74)
[2022-06-06 07:54] LABS: PLATELET ESTIMATE SLIGHTLY DECREASED; PLATELET MORPHOLOGY COMMENT NORMAL; RBC MORPHOLOGY COMMENT NORMAL
[2022-06-06] MEDS: OCTREOTIDE ACETATE 500 MCG in SODIUM CHLORIDE 0.9% 250ML 250 ML IV SCH ×2 (10:33→19:53)
[2022-06-06] MEDS ORDERED: POTASSIUM CHLORIDE 20MEQ/100ML 200 ML IV ONE (11:00)
[2022-06-06] MEDS: ACETAMINOPHEN 325 MG/10 ML UDC NG PRN (22:52)
[2022-06-07] VITALS (24 sets, daily range): BP systolic 104–147; BP diastolic 67–86
[2022-06-07] MEDS: METOCLOPRAMIDE HCL 10 MG/2ML VIAL IV SCH ×5 (00:27→23:33)
[2022-06-07] MEDS: VANCOMYCIN 250MG/5ML ORAL SOLN GT SCH ×5 (00:27→23:33)
[2022-06-07 01:27] LABS: CREATINE KINASE MB 0.5 ng/mL (0-5.0)
[2022-06-07] MEDS: OCTREOTIDE ACETATE 500 MCG in SODIUM CHLORIDE 0.9% 250ML 250 ML IV SCH ×3 (03:58→20:41)
[2022-06-07] MEDS: METRONIDAZOLE 500MG/NS 100ML 100 ML IV SCH ×3 (05:36→21:34)
[2022-06-07 06:49] LABS: BASOPHILS # (AUTO) 0.1 (0.0-0.1); BASOPHILS % 0.3 % (0.0-1.0); EOSINOPHILS % 0.1 % (0.0-6.0); HEMATOCRIT 27.9 % (34.2-44.1); HEMOGLOBIN 8.6 g/dL (12.0-16.0); LYMPHOCYTES # (AUTO) 0.4 (1.0-3.2); LYMPHOCYTES % 1.5 % (18.0-39.1); MEAN CORPUSCULAR HEMOGLOBIN 30.3 pg (28-32); MEAN CORPUSCULAR HGB CONC 30.8 g/dL (31-35); MEAN CORPUSCULAR VOLUME 98.2 fL (81-99); MONOCYTES % 3.4 % (4.4-11.3); NEUTROPHILS # (AUTO) 27.1 (2.1-6.9); NEUTROPHILS % 92.3 % (38.7-80.0); PLATELET COUNT 127 x10e3/uL (140-360); RED BLOOD COUNT 2.84 x10e6/uL (3.6-5.1); RED CELL DISTRIBUTION WIDTH 14.1 % (11.7-14.4)
[2022-06-07 07:06] LABS: ALBUMIN 1.7 g/dL (3.5-5.0); ALBUMIN/GLOBULIN RATIO 0.9 (0.8-2.0); CREATININE, SERUM 0.47 mg/dL (0.57-1.11)
[2022-06-07 07:13] LABS: CALCIUM 5.9 mg/dL (8.4-10.2)
[2022-06-07 08:48] LABS: BAND NEUTROPHILS % (MANUAL) 1 %; LYMPHOCYTES % (MANUAL) 1 % (19-48); MONOCYTES % (MANUAL) 2 % (3.4-9.0); NEUTROPHILS % (MANUAL) 96 % (40-74); PLATELET ESTIMATE SLIGHTLY DECREASED; PLATELET MORPHOLOGY COMMENT NORMAL; RBC MORPHOLOGY COMMENT NORMAL
[2022-06-07] MEDS: FENTANYL 2000MCG/NS 250 250 ML IV SCH (08:51)
[2022-06-07] MEDS: POTASSIUM CHLORIDE 20MEQ/100ML 100 ML IV SCH ×2 (10:10→11:57)
[2022-06-07] MEDS ORDERED: CALCIUM GLUC 1 G/50 ML NACL 50 ML IV ONE (14:00)
[2022-06-07 16:10] LABS: IGG/ALB RATIO CSF 0.11 (0.00-0.25)
[2022-06-07] MEDS: ACETAMINOPHEN 325 MG/10 ML UDC NG PRN (16:39)
[2022-06-07 18:40] LABS: CSF/SERUM ALBUMIN INDEX 5 (0-8)
[2022-06-08] VITALS (24 sets, daily range): BP systolic 118–158; BP diastolic 69–97
[2022-06-08] MEDS ORDERED: DONNATAL/LIDOCAINE/MAALOX 30 ML SUSP PO ONE (00:45)
[2022-06-08] MEDS ORDERED: LIDOCAINE VISC 2% SOLN 15 ML UDC ONE (01:47)
[2022-06-08] MEDS ORDERED: MAGNESIUM/ALUMINUM/SIMETHICONE 30 ML UDC ONE (01:48)
[2022-06-08] MEDS ORDERED: BELLADONNA ALK/PHENOBARBITAL 5 ML UDC ONE (01:49)
[2022-06-08] MEDS: ACETAMINOPHEN 325 MG/10 ML UDC NG PRN (05:44)
[2022-06-08] MEDS: METOCLOPRAMIDE HCL 10 MG/2ML VIAL IV SCH ×4 (05:44→23:26)
[2022-06-08] MEDS: METRONIDAZOLE 500MG/NS 100ML 100 ML IV SCH ×3 (05:44→21:14)
[2022-06-08] MEDS: VANCOMYCIN 250MG/5ML ORAL SOLN GT SCH ×4 (05:44→23:26)
[2022-06-08 06:36] LABS: BASOPHILS % 0.1 % (0.0-1.0); EOSINOPHILS # (AUTO) 0.2 (0.0-0.4); EOSINOPHILS % 0.8 % (0.0-6.0); HEMATOCRIT 31.4 % (34.2-44.1); HEMOGLOBIN 10.4 g/dL (12.0-16.0); LYMPHOCYTES # (AUTO) 0.4 (1.0-3.2); LYMPHOCYTES % 1.5 % (18.0-39.1); MEAN CORPUSCULAR HEMOGLOBIN 30.4 pg (28-32); MEAN CORPUSCULAR HGB CONC 33.1 g/dL (31-35); MEAN CORPUSCULAR VOLUME 91.8 fL (81-99); MONOCYTES # (AUTO) 1.1 (0.2-0.8); MONOCYTES % 4.1 % (4.4-11.3); NEUTROPHILS # (AUTO) 25.3 (2.1-6.9); NEUTROPHILS % 90.1 % (38.7-80.0); PLATELET COUNT 206 x10e3/uL (140-360); RED BLOOD COUNT 3.42 x10e6/uL (3.6-5.1); RED CELL DISTRIBUTION WIDTH 14.4 % (11.7-14.4)
[2022-06-08 07:01] LABS: ALBUMIN 1.9 g/dL (3.5-5.0); ALBUMIN/GLOBULIN RATIO 0.7 (0.8-2.0); ANION GAP 14.2 mmol/L (8-16); CALCIUM 7.7 mg/dL (8.4-10.2); CREATININE, SERUM 0.46 mg/dL (0.57-1.11); POTASSIUM 4.2 mmol/L (3.5-5.1)
[2022-06-08 08:27] LABS: BAND NEUTROPHILS % (MANUAL) 2 %; EOSINOPHILS % (MANUAL) 4 % (0-7); LYMPHOCYTES % (MANUAL) 1 % (19-48); MONOCYTES % (MANUAL) 4 % (3.4-9.0); NEUTROPHILS % (MANUAL) 89 % (40-74); PLATELET ESTIMATE ADEQUATE; PLATELET MORPHOLOGY COMMENT NORMAL; RBC MORPHOLOGY COMMENT NORMAL
[2022-06-08 14:59] LABS: BASOPHILS # (AUTO) 0.1 (0.0-0.1); BASOPHILS % 0.3 % (0.0-1.0); EOSINOPHILS # (AUTO) 0.2 (0.0-0.4); EOSINOPHILS % 0.8 % (0.0-6.0); HEMOGLOBIN 8.9 g/dL (12.0-16.0); LYMPHOCYTES # (AUTO) 0.4 (1.0-3.2); LYMPHOCYTES % 1.8 % (18.0-39.1); MEAN CORPUSCULAR HEMOGLOBIN 30.3 pg (28-32); MEAN CORPUSCULAR HGB CONC 30.7 g/dL (31-35); MEAN CORPUSCULAR VOLUME 98.6 fL (81-99); MONOCYTES # (AUTO) 1.1 (0.2-0.8); MONOCYTES % 4.9 % (4.4-11.3); NEUTROPHILS % 88.9 % (38.7-80.0); PLATELET COUNT 171 x10e3/uL (140-360); RED BLOOD COUNT 2.94 x10e6/uL (3.6-5.1); RED CELL DISTRIBUTION WIDTH 14.3 % (11.7-14.4)
[2022-06-08 15:16] LABS: INR 1.88; PROTHROMBIN TIME 21.8 seconds (11.9-14.5)
[2022-06-08 15:17] LABS: ANION GAP 13.6 mmol/L (8-16); CREATININE, SERUM 0.41 mg/dL (0.57-1.11); POTASSIUM 3.6 mmol/L (3.5-5.1)
[2022-06-08 15:20] LABS: CALCIUM 6.3 mg/dL (8.4-10.2)
[2022-06-08] MEDS ORDERED: CALCIUM CARBONATE 500 MG CHEWABLE TABS PO SCH (17:45)
[2022-06-09] VITALS (25 sets, daily range): BP systolic 104–141; BP diastolic 68–83
[2022-06-09] MEDS: FENTANYL 2000MCG/NS 250 250 ML IV SCH (03:58)
[2022-06-09] MEDS: VANCOMYCIN 250MG/5ML ORAL SOLN GT SCH ×3 (05:09→17:47)
[2022-06-09] MEDS: METRONIDAZOLE 500MG/NS 100ML 100 ML IV SCH ×2 (05:09→14:40)
[2022-06-09] MEDS: METOCLOPRAMIDE HCL 10 MG/2ML VIAL IV SCH ×3 (05:10→17:47)
[2022-06-09 06:57] LABS: BASOPHILS # (AUTO) 0.1 (0.0-0.1); BASOPHILS % 0.4 % (0.0-1.0); EOSINOPHILS # (AUTO) 0.1 (0.0-0.4); EOSINOPHILS % 0.7 % (0.0-6.0); HEMATOCRIT 30.3 % (34.2-44.1); HEMOGLOBIN 9.5 g/dL (12.0-16.0); LYMPHOCYTES # (AUTO) 0.4 (1.0-3.2); LYMPHOCYTES % 2.4 % (18.0-39.1); MEAN CORPUSCULAR HEMOGLOBIN 30.5 pg (28-32); MEAN CORPUSCULAR HGB CONC 31.4 g/dL (31-35); MEAN CORPUSCULAR VOLUME 97.4 fL (81-99); MONOCYTES # (AUTO) 1.3 (0.2-0.8); MONOCYTES % 7.2 % (4.4-11.3); NEUTROPHILS # (AUTO) 15.1 (2.1-6.9); NEUTROPHILS % 84.3 % (38.7-80.0); PLATELET COUNT 210 x10e3/uL (140-360); RED BLOOD COUNT 3.11 x10e6/uL (3.6-5.1); RED CELL DISTRIBUTION WIDTH 14.2 % (11.7-14.4)
[2022-06-09 07:33] LABS: ALBUMIN 1.7 g/dL (3.5-5.0); ALBUMIN/GLOBULIN RATIO 0.6 (0.8-2.0); ANION GAP 12.9 mmol/L (8-16); CALCIUM 7.5 mg/dL (8.4-10.2); CREATININE, SERUM 0.37 mg/dL (0.57-1.11); POTASSIUM 3.9 mmol/L (3.5-5.1)
[2022-06-09 09:39] LABS: BAND NEUTROPHILS % (MANUAL) 5 %; HYPOCHROMASIA SLIGHT; LYMPHOCYTES % (MANUAL) 1 % (19-48); MONOCYTES % (MANUAL) 9 % (3.4-9.0); NEUTROPHILS % (MANUAL) 85 % (40-74); PLATELET ESTIMATE ADEQUATE; PLATELET MORPHOLOGY COMMENT NORMAL; RBC MORPHOLOGY COMMENT NORMAL
[2022-06-09] MEDS: COLLAGENASE 5 GM TUBE TOP SCH (11:00)
[2022-06-09] MEDS ORDERED: LIDOCAINE HCL 1% 30ML-PF VIAL ONE (13:09)
[2022-06-09] MEDS ORDERED: FENTANYL CITRATE/PF 100MCG/2 ML INJ ONE (13:09)
[2022-06-09] MEDS ORDERED: MIDAZOLAM HCL 2 MG/2 ML VIAL ONE (13:09)
[2022-06-09] MEDS ORDERED: IOPAMIDOL 610MG/1ML 300 MG/ML VIAL IV ONE (13:10)
[2022-06-09] MEDS ORDERED: HEPARIN SOD/SOD CHLORIDE 0 ML ONE (13:10)
[2022-06-09] MEDS ORDERED: SODIUM CHLORIDE 0.9% 1000ML 0 ML ONE (13:10)
[2022-06-09] MEDS ORDERED: PREDNISONE 20 MG TAB NG SCH (14:45)
[2022-06-09] MEDS ORDERED: FUROSEMIDE INJ 10 MG/ML 4 ML VIAL IV ONE (18:00)
[2022-06-10] VITALS (36 sets, daily range): BP systolic 97–146; BP diastolic 68–102
[2022-06-10] MEDS ORDERED: PREDNISOLONE 15 MG/5 ML ORAL SOLUTION NG SCH
[2022-06-10] MEDS: METOCLOPRAMIDE HCL 10 MG/2ML VIAL IV SCH ×4 (01:24→17:41)
[2022-06-10] MEDS: VANCOMYCIN 250MG/5ML ORAL SOLN GT SCH ×5 (01:24→19:08)
[2022-06-10] MEDS: PREDNISONE 20 MG TAB NG SCH ×3 (01:24→12:00)
[2022-06-10] MEDS: COLLAGENASE 5 GM TUBE TOP SCH ×2 (01:39→10:10)
[2022-06-10 06:53] LABS: BASOPHILS % 0.1 % (0.0-1.0); EOSINOPHILS % 0.1 % (0.0-6.0); HEMATOCRIT 28.4 % (34.2-44.1); HEMOGLOBIN 9.4 g/dL (12.0-16.0); LYMPHOCYTES # (AUTO) 0.3 (1.0-3.2); LYMPHOCYTES % 2.3 % (18.0-39.1); MEAN CORPUSCULAR HEMOGLOBIN 30.2 pg (28-32); MEAN CORPUSCULAR HGB CONC 33.1 g/dL (31-35); MEAN CORPUSCULAR VOLUME 91.3 fL (81-99); MONOCYTES # (AUTO) 0.5 (0.2-0.8); MONOCYTES % 3.6 % (4.4-11.3); NEUTROPHILS # (AUTO) 12.7 (2.1-6.9); NEUTROPHILS % 86.6 % (38.7-80.0); PLATELET COUNT 233 x10e3/uL (140-360); RED BLOOD COUNT 3.11 x10e6/uL (3.6-5.1); RED CELL DISTRIBUTION WIDTH 14.4 % (11.7-14.4)
[2022-06-10 07:09] LABS: ALBUMIN 1.8 g/dL (3.5-5.0); ALBUMIN/GLOBULIN RATIO 0.6 (0.8-2.0); ANION GAP 15.1 mmol/L (8-16); CALCIUM 7.8 mg/dL (8.4-10.2); CREATININE, SERUM 0.38 mg/dL (0.57-1.11); POTASSIUM 4.1 mmol/L (3.5-5.1)
[2022-06-10 08:51] LABS: MONOCYTES % (MANUAL) 4 % (3.4-9.0); MYELOCYTES % (MANUAL) 7 % (0-0); NEUTROPHILS % (MANUAL) 89 % (40-74)
[2022-06-10 08:52] LABS: PLATELET ESTIMATE ADEQUATE; PLATELET MORPHOLOGY COMMENT NORMAL; RBC MORPHOLOGY COMMENT NORMAL
[2022-06-10] MEDS: LIDOCAINE 4% PATCH TP SCH (10:10)
[2022-06-10] MEDS ORDERED: MIDAZOLAM HCL 2 MG/2 ML VIAL IV ONE ×2 (11:15→12:26)
[2022-06-10] MEDS: FENTANYL 2000MCG/NS 250 250 ML IV SCH (11:25)
[2022-06-10] MEDS ORDERED: DIPHENHYDRAMINE HCL ELIX 12.5 MG/5 ML UDC NG ONE (12:00)
[2022-06-10] MEDS ORDERED: IOPAMIDOL 300MG/ML 50ML INFUS..BTL IV ONE (13:23)
[2022-06-10] MEDS ORDERED: SODIUM CHLORIDE 0.9% 250ML 0 ML ONE (13:23)
[2022-06-10] MEDS ORDERED: LIDOCAINE 1% 10 ML MULTIDOSE VIAL IJ ONE (13:23)
[2022-06-10] MEDS ORDERED: SODIUM CHLORIDE 0.9% 500ML 500 ML ONE ×2 (13:35→14:26)
[2022-06-10] MEDS ORDERED: MIDAZOLAM HCL 2 MG/2 ML VIAL ONE (14:25)
[2022-06-10] MEDS ORDERED: LIDOCAINE HCL 2% LOCAL 20 ML VIAL ONE ×2 (14:36→14:37)
[2022-06-10] MEDS ORDERED: IOPAMIDOL 610MG/1ML 300 MG/ML VIAL IV ONE (14:44)
[2022-06-10] MEDS: MIDAZOLAM HCL 2 MG/2 ML VIAL IV PRN (17:40)
[2022-06-10] MEDS ORDERED: PREDNISONE 20 MG TAB NG SCH ×2 (18:00)
[2022-06-11] VITALS (38 sets, daily range): BP systolic 105–166; BP diastolic 68–104
[2022-06-11] MEDS: VANCOMYCIN 250MG/5ML ORAL SOLN GT SCH ×4 (01:18→18:49)
[2022-06-11] MEDS: METOCLOPRAMIDE HCL 10 MG/2ML VIAL IV SCH ×5 (01:18→23:13)
[2022-06-11] MEDS: MIDAZOLAM HCL 2 MG/2 ML VIAL IV PRN ×6 (01:19→23:13)
[2022-06-11] MEDS: MUPIROCIN 2% OINT 22 GM TUBE TOP SCH (04:33)
[2022-06-11 04:44] LABS: CLARITY,URINE CLOUDY (CLEAR); COLOR,URINE YELLOW (YELLOW); KETONES,URINE 1+ (NEGATIVE); LEUKOCYTE ESTERASE ,URINE MODERATE (NEGATIVE); NITRITE,URINE POSITIVE (NEGATIVE); PROTEIN,URINE DIPSTICK 2+ (NEGATIVE); URINE UROBILINOGEN 0.2 mg/dL (0.2 - 1)
[2022-06-11 04:50] LABS: BACTERIA,URINE MODERATE /HPF; EPITHELIAL CELLS,URINE FEW /LPF; WBC,URINE (MAN) >50 /HPF (0-5)
[2022-06-11 04:51] LABS: TRIPLE PHOSPHATE CRYSTAL,UR FEW (FEW)
[2022-06-11 06:53] LABS: BASOPHILS # (AUTO) 0.2 (0.0-0.1); BASOPHILS % 0.8 % (0.0-1.0); HEMATOCRIT 26.4 % (34.2-44.1); HEMOGLOBIN 8.7 g/dL (12.0-16.0); LYMPHOCYTES # (AUTO) 0.7 (1.0-3.2); LYMPHOCYTES % 3.5 % (18.0-39.1); MEAN CORPUSCULAR HEMOGLOBIN 29.8 pg (28-32); MEAN CORPUSCULAR VOLUME 90.4 fL (81-99); MONOCYTES # (AUTO) 1.5 (0.2-0.8); NEUTROPHILS # (AUTO) 14.7 (2.1-6.9); NEUTROPHILS % 77.3 % (38.7-80.0); PLATELET COUNT 272 x10e3/uL (140-360); RED BLOOD COUNT 2.92 x10e6/uL (3.6-5.1); RED CELL DISTRIBUTION WIDTH 14.4 % (11.7-14.4)
[2022-06-11 07:17] LABS: ALBUMIN 1.7 g/dL (3.5-5.0); ALBUMIN/GLOBULIN RATIO 0.6 (0.8-2.0); ANION GAP 13.2 mmol/L (8-16); CALCIUM 7.5 mg/dL (8.4-10.2); CREATININE, SERUM 0.48 mg/dL (0.57-1.11); POTASSIUM 4.2 mmol/L (3.5-5.1)
[2022-06-11 08:29] LABS: LYMPHOCYTES % (MANUAL) 4 % (19-48); MONOCYTES % (MANUAL) 2 % (3.4-9.0); MYELOCYTES % (MANUAL) 7 % (0-0); NEUTROPHILS % (MANUAL) 87 % (40-74); PLATELET ESTIMATE ADEQUATE; PLATELET MORPHOLOGY COMMENT NORMAL
[2022-06-11 08:30] LABS: RBC MORPHOLOGY COMMENT NORMAL
[2022-06-11] MEDS: LIDOCAINE 4% PATCH TP SCH (08:50)
[2022-06-11] MEDS: ACETAMINOPHEN 325 MG/10 ML UDC NG PRN (08:50)
[2022-06-11] MEDS: FENTANYL 2000MCG/NS 250 250 ML IV PRN (15:06)
[2022-06-11] MEDS: METOPROLOL TARTRATE INJ 1 MG/ML VIAL IV PRN (23:20)
[2022-06-12] VITALS (8 sets, daily range): BP systolic 102–157; BP diastolic 64–113
[2022-06-12] MEDS: VANCOMYCIN 250MG/5ML ORAL SOLN GT SCH ×3 (00:10→12:00)
[2022-06-12] MEDS: MIDAZOLAM HCL 2 MG/2 ML VIAL IV PRN ×4 (02:18→12:10)
[2022-06-12] MEDS: METOCLOPRAMIDE HCL 10 MG/2ML VIAL IV SCH ×2 (05:29→12:00)
[2022-06-12 07:12] LABS: BASOPHILS # (AUTO) 0.1 (0.0-0.1); BASOPHILS % 0.6 % (0.0-1.0); EOSINOPHILS % 0.2 % (0.0-6.0); HEMATOCRIT 30.4 % (34.2-44.1); HEMOGLOBIN 9.3 g/dL (12.0-16.0); LYMPHOCYTES # (AUTO) 0.5 (1.0-3.2); LYMPHOCYTES % 2.6 % (18.0-39.1); MEAN CORPUSCULAR HEMOGLOBIN 29.7 pg (28-32); MEAN CORPUSCULAR HGB CONC 30.6 g/dL (31-35); MEAN CORPUSCULAR VOLUME 97.1 fL (81-99); MONOCYTES # (AUTO) 0.4 (0.2-0.8); NEUTROPHILS # (AUTO) 17.4 (2.1-6.9); NEUTROPHILS % 87.8 % (38.7-80.0); PLATELET COUNT 239 x10e3/uL (140-360); RED BLOOD COUNT 3.13 x10e6/uL (3.6-5.1); RED CELL DISTRIBUTION WIDTH 14.5 % (11.7-14.4)
[2022-06-12 07:37] LABS: ALBUMIN 1.8 g/dL (3.5-5.0); ALBUMIN/GLOBULIN RATIO 0.6 (0.8-2.0); ANION GAP 13.9 mmol/L (8-16); CALCIUM 7.7 mg/dL (8.4-10.2); CREATININE, SERUM 0.44 mg/dL (0.57-1.11); POTASSIUM 3.9 mmol/L (3.5-5.1)
[2022-06-12] MEDS: MUPIROCIN 2% OINT 22 GM TUBE TOP SCH (08:33)
[2022-06-12] MEDS: METOPROLOL TARTRATE INJ 1 MG/ML VIAL IV PRN (08:34)
[2022-06-12] MEDS: FENTANYL 2000MCG/NS 250 250 ML IV PRN (08:36)
[2022-06-12] MEDS: LIDOCAINE 4% PATCH TP SCH (08:36)
[2022-06-12] MEDS: ACETAMINOPHEN 325 MG/10 ML UDC NG PRN (09:34)
[2022-06-12 11:25] LABS: BAND NEUTROPHILS % (MANUAL) 16 %; LYMPHOCYTES % (MANUAL) 3 % (19-48); METAMYELOCYTES % (MANUAL) 4 % (0-0); MONOCYTES % (MANUAL) 2 % (3.4-9.0); MYELOCYTES % (MANUAL) 4 % (0-0); NEUTROPHILS % (MANUAL) 70 % (40-74); PLATELET ESTIMATE ADEQUATE
[2022-06-12 11:27] LABS: PLATELET MORPHOLOGY COMMENT NORMAL
== END 2022-06-12 12:34 | DRG 3 ==
LOC: ER 21:50 → ERHOLD 05-08 00:42 → ICU 05-08 02:54 → MED/SURG2 05-12 07:58 → ICU 05-16 13:30
PROVIDERS: ADMIT Internal Medicine; ATTEND Internal Medicine
PROC: 3E04329 Introduction of Other Anti-infective into Central Vein, Percutaneous Approach (ICD-10-PCS; 2022-05-10)
PROC: 30243N1 Transfusion of Nonautologous Red Blood Cells into Central Vein, Percutaneous Approach (ICD-10-PCS; 2022-05-14)
PROC: 05HY33Z Insertion of Infusion Device into Upper Vein, Percutaneous Approach (ICD-10-PCS; 2022-05-16)
PROC: 0BH17EZ Insertion of Endotracheal Airway into Trachea, Via Natural or Artificial Opening (ICD-10-PCS; 2022-05-16)
PROC: 5A1955Z Respiratory Ventilation, Greater than 96 Consecutive Hours (ICD-10-PCS; 2022-05-16)
PROC: 5A09457 Assistance with Respiratory Ventilation, 24-96 Consecutive Hours, Continuous Positive Airway Pressure (ICD-10-PCS; 2022-05-16)
PROC: 30243K1 Transfusion of Nonautologous Frozen Plasma into Central Vein, Percutaneous Approach (ICD-10-PCS; 2022-05-17)
PROC: 03HC3DZ Insertion of Intraluminal Device into Left Radial Artery, Percutaneous Approach (ICD-10-PCS; 2022-05-19)
PROC: 0B110F4 Bypass Trachea to Cutaneous with Tracheostomy Device, Open Approach (ICD-10-PCS; 2022-05-27)
PROC: 5A1955Z Respiratory Ventilation, Greater than 96 Consecutive Hours (ICD-10-PCS; 2022-05-27)
PROC: 0W9930Z Drainage of Right Pleural Cavity with Drainage Device, Percutaneous Approach (ICD-10-PCS; 2022-05-27)
PROC: 009U3ZX Drainage of Spinal Canal, Percutaneous Approach, Diagnostic (ICD-10-PCS; 2022-06-02)
PROC: 0W3P8ZZ Control Bleeding in Gastrointestinal Tract, Via Natural or Artificial Opening Endoscopic (ICD-10-PCS; 2022-06-04)
PROC: 02HV33Z Insertion of Infusion Device into Superior Vena Cava, Percutaneous Approach (ICD-10-PCS; 2022-06-04)
PROC: 3E043XZ Introduction of Vasopressor into Central Vein, Percutaneous Approach (ICD-10-PCS; 2022-06-04)
PROC: 3E0H8GC Introduction of Other Therapeutic Substance into Lower GI, Via Natural or Artificial Opening Endoscopic (ICD-10-PCS; principal; 2022-06-04 16:10)
PROC: 05HY33Z Insertion of Infusion Device into Upper Vein, Percutaneous Approach (ICD-10-PCS; 2022-06-09)
PROC: 06H03DZ Insertion of Intraluminal Device into Inferior Vena Cava, Percutaneous Approach (ICD-10-PCS; 2022-06-10)
DX: A41.51 Sepsis due to Escherichia coli [E. coli] (principal); G93.41 Metabolic encephalopathy; J96.01 Acute respiratory failure with hypoxia; G82.50 Quadriplegia, unspecified; J69.0 Pneumonitis due to inhalation of food and vomit; R65.21 Severe sepsis with septic shock; R57.8 Other shock; J93.9 Pneumothorax, unspecified; Z68.1 Body mass index [BMI] 19.9 or less, adult; D62 Acute posthemorrhagic anemia; E44.0 Moderate protein-calorie malnutrition; G72.81 Critical illness myopathy; Z16.12 Extended spectrum beta lactamase (ESBL) resistance; E87.0 Hyperosmolality and hypernatremia; D68.32 Hemorrhagic disorder due to extrinsic circulating anticoagulants; Z86.711 Personal history of pulmonary embolism; Z79.01 Long term (current) use of anticoagulants; Z86.718 Personal history of other venous thrombosis and embolism; I25.10 Atherosclerotic heart disease of native coronary artery without angina pectoris; E03.9 Hypothyroidism, unspecified; K21.9 Gastro-esophageal reflux disease without esophagitis; Z88.8 Allergy status to other drugs, medicaments and biological substances; Z91.041 Radiographic dye allergy status; Z20.822 Contact with and (suspected) exposure to COVID-19; G89.29 Other chronic pain; Z79.899 Other long term (current) drug therapy; Z86.73 Personal history of transient ischemic attack (TIA), and cerebral infarction without residual deficits; M54.9 Dorsalgia, unspecified; E88.09 Other disorders of plasma-protein metabolism, not elsewhere classified; R62.7 Adult failure to thrive; E83.51 Hypocalcemia; R33.9 Retention of urine, unspecified; R13.10 Dysphagia, unspecified; D69.6 Thrombocytopenia, unspecified; R65.20 Severe sepsis without septic shock; Z98.84 Bariatric surgery status; R29.818 Other symptoms and signs involving the nervous system; E83.39 Other disorders of phosphorus metabolism; E87.6 Hypokalemia; L89.152 Pressure ulcer of sacral region, stage 2; K62.9 Disease of anus and rectum, unspecified; T45.515A Adverse effect of anticoagulants, initial encounter
CPT/HCPCS: 31500; 36005; 36415; 36569; 36584; 36600; 37191; 45330; 70450; 70551; 71045; 71250; 71260; 72141; 74018; 74174; 74176; 74470; 76700; 76830; 80048; 80053; 81001; 81050; 82040; 82105; 82140; 82248; 82378; 82550; 82553; 82570; 82607; 82728; 82746; 82784; 82805; 82945; 83010; 83516; 83519; 83540; 83605; 83615; 83735; 83880; 83916; 84100; 84132; 84155; 84156; 84157; 84165; 84207; 84466; 84484; 85007; 85014; 85018; 85025; 85027; 85045; 85049; 85379; 85384; 85610; 85730; 86021; 86022; 86160; 86200; 86225; 86235; 86255; 86256; 86301; 86304; 86335; 86376; 86431; 86592; 86789; 86850; 86880; 86900; 86920; 87040; 87070; 87071; 87086; 87186; 87205; 87476; 89051; 93005; 93306; 93926; 93970; 94002; 94003; 94640; 94660; 94799; 95819; 99251; 99252; 99284; J0171; J0330; J0690; J0692; J1100; J1200; J1580; J1610; J1650; J1652; J1720; J1885; J1940; J2001; J2185; J2250; J2270; J2353; J2370; J2405; J2543; J2550; J2765; J2916; J2997; J3010; J3370; J3411; J3430; J3475; J3480; J7030; J7040; J7042; J7050; J7070; J7121; J7512; P9016; P9017; P9034; P9047; Q0162; Q9967